=== PATIENT | female | born 1970 | race Caucasian/White ===

== ENCOUNTER → 2017-06-14 | Outpatient (CLI) | payer OTHER ==
[~2017-06-14] MED LIST: ALBU90OI INH; ANTIDEPRESSENT; ASPI325 PO; ASPI325EC PO; ASPI81CH PO; Ativan0.5 MG PO; BENZ100A PO; Cyclobenzaprine5 MG PO; EPIN.3I IM; EPIPEN0.3 MG/0.3 INJ; FERRETTS PO; FLUT44OIA INH; Flonase 0.05% N16 GM; Flovent Disku250 MCG; Flovent Disku250 MCG INH; GABA100 PO; HYDR1TAB94 PO; IBUP600 PO; IBUP800; IBUP800 PO; KETO10 PO; Lamisil125 ML; MECL12.5; MECL12.5 PO; MONT10T; MONT10T PO; Maxalt Mlt10 MG PO; Maxalt10 MG; Maxalt10 MG PO; Norco 10-325 T1 EACH PO; Norco 5-325 Ta1 EACH PO; ONDA8; PSEU120ER PO; Pentoxifylline400 MG PO; Percocet 5-3251 EACH PO; Prednisone20 MG PO; SERT100; SERT100 PO; SIMV10 PO; Valium5 MG PO; Zofran Odt4 MG SL
== END ==
LOC: LAB 12:18
PROVIDERS: Family Medicine
DX: E61.1 Iron deficiency (principal)
CPT/HCPCS: 83540; 83550

== ENCOUNTER 2017-07-15 18:45 | Emergency (ER) | payer OTHER ==
[~2017-07-15] VITALS: Ht 193 cm; Wt 113.4 kg
[~2017-07-15 18:45] MED LIST changes: -ASPI325EC PO; -EPIPEN0.3 MG/0.3 INJ; -Flovent Disku250 MCG INH; -IBUP800; -Lamisil125 ML; -Maxalt Mlt10 MG PO; -Maxalt10 MG
[2017-07-15 19:54] LABS: BASOPHILS ABSOLUTE AUTO 0.03 K/mm3 (0.00-0.23); BASOPHILS PERCENT AUTO 1 % (0-2); EOSINOPHILS ABSOLUTE AUTO 0.13 K/mm3 (0.00-0.68); EOSINOPHILS PERCENT AUTO 2 % (0-6); Hematocrit 33.2 % (33.0-51.0); Hemoglobin 10.2 g/dL (11.5-16.0); IMMATURE GRAN ABSOLUTE AUTO 0.01 K/mm3 (0.00-0.10); IMMATURE GRAN PERCENT AUTO 0 % (0-1); LYMPHOCYTES ABSOLUTE AUTO 1.93 K/mm3 (0.84-5.20); LYMPHOCYTES PERCENT AUTO 36 % (21-46); MONOCYTES ABSOLUTE AUTO 0.41 K/mm3 (0.16-1.47); MONOCYTES PERCENT AUTO 8 % (4-13); Mean Corpuscular HGB 25.7 pg (26.0-34.0); Mean Corpuscular HGB Conc 30.7 g/dL (31.5-36.5); Mean Corpuscular Volume 84 fL (80-100); Mean Platelet Volume 10.5 fL (9.1-12.4); NEUTROPHILS ABSOLUTE AUTO 2.93 K/mm3 (1.96-9.15); NEUTROPHILS PERCENT AUTO 54 % (41-73); Platelet Count 277 K/mm3 (150-400); RDW Coefficient Variation 15.1 % (11.7-14.2); RDW Standard Deviation 45.5 fL (35.1-46.3); Red Blood Cell Count 3.97 M/mm3 (3.80-5.20); White Blood Cell Count 5.44 K/mm3 (4.00-11.30)
[2017-07-15] MEDS ORDERED: Maxalt10 MG (20:19)
[2017-07-15 20:22] LABS: Alanine Aminotransfer (ALT/SGP 17 U/L (12-78); Albumin, Blood 3.7 g/dL (3.4-5.0); Albumin/Globulin Ratio 0.9 (0.8-1.8); Alk Phos 85 U/L (50-136); Anion Gap 8 mmol/L (6-16); Aspartate Aminotrans (AST/SGOT 13 U/L (12-37); Bilirubin, Total 0.6 mg/dL (0.1-1.0); Blood Urea Nitrogen 10 mg/dL (8-24); Bun/Creatinine Ratio 16.5 (12.0-20.0); CO2, Blood 24 mmol/L (21-32); Calcium, Blood 8.6 mg/dL (8.5-10.1); Chloride, Blood 106 mmol/L (98-108); Creatinine, Blood 0.61 mg/dL (0.40-1.00); Glomerular Filtration Rate >60 (60-); Glucose, Blood 87 mg/dL (70-99); Potassium, Blood 3.5 mmol/L (3.5-5.5); Sodium, Blood 138 mmol/L (136-145); Total Protein, Blood 7.7 g/dL (6.4-8.2)
[2017-07-15] MEDS ORDERED: Norco 5-325 Ta1 EACH PO (21:19)
[2017-12-16] MEDS ORDERED: Maxalt Mlt10 MG PO (21:51)
[2018-01-01] MEDS ORDERED: EPIPEN0.3 MG/0.3 INJ (07:27)
[2018-01-01] MEDS ORDERED: Flovent Disku250 MCG INH (07:28)
[2018-03-22] MEDS ORDERED: IBUP800 (10:11)
[2018-03-22] MEDS ORDERED: Lamisil125 ML (10:13)
== END 2017-07-15 21:35 | disposition home or self-care (01) ==
LOC: ER 18:45
PROVIDERS: Emergency Medicine
DX: I80.01 Phlebitis and thrombophlebitis of superficial vessels of right lower extremity (principal); R60.0 Localized edema; I83.019 Varicose veins of right lower extremity with ulcer of unspecified site; G43.909 Migraine, unspecified, not intractable, without status migrainosus; F32.9 Major depressive disorder, single episode, unspecified
CPT/HCPCS: 73610; 80053; 85025; 93971; 96374; 96375; 99284; J1170; J2405

== ENCOUNTER 2017-09-03 07:14 | Day surgery (SDC) | payer OTHER ==
[~2017-09-03 07:14] MED LIST changes: +Maxalt10 MG
[2017-09-03 07:47] LABS: International Normalized Ratio 1.02; Prothrombin Time Results 10.6 Sec (9.7-11.5)
[2017-09-03] MEDS ORDERED: ALBU90OI INH (07:52)
[2017-09-03] MEDS ORDERED: Flovent Disku250 MCG INH (07:54)
[2017-09-03] MEDS ORDERED: GABA100 PO (07:56)
[2017-09-03] MEDS ORDERED: ASPI325EC PO (07:58)
[2017-12-16] MEDS ORDERED: Maxalt Mlt10 MG PO (21:51)
[2018-01-01] MEDS ORDERED: EPIPEN0.3 MG/0.3 INJ (07:27)
[2018-01-01] MEDS ORDERED: Flovent Disku250 MCG INH (07:28)
[2018-03-22] MEDS ORDERED: IBUP800 (10:11)
[2018-03-22] MEDS ORDERED: Lamisil125 ML (10:13)
== END 2017-09-03 23:09 | disposition home or self-care (01) ==
LOC: MHTC 07:14
PROVIDERS: Internal Medicine Interventional Cardiology
PROC: 3E033TZ Introduction of Destructive Agent into Peripheral Vein, Percutaneous Approach (ICD-10-PCS; principal; 2017-09-03)
DX: I83.212 Varicose veins of right lower extremity with both ulcer of calf and inflammation (principal); L97.219 Non-pressure chronic ulcer of right calf with unspecified severity; I10 Essential (primary) hypertension; J45.909 Unspecified asthma, uncomplicated; Z79.899 Other long term (current) drug therapy; Z91.040 Latex allergy status; Z79.82 Long term (current) use of aspirin
CPT/HCPCS: 36415; 36465; 36471; 85610; 99152; C1769; C1888; C1894; J2250; J3010; J7030; J7040

== ENCOUNTER → 2017-12-18 | Outpatient (CLI) | payer OTHER ==
[~2017-12-18] MED LIST changes: +ASPI325EC PO; +Flovent Disku250 MCG INH; +Maxalt Mlt10 MG PO
== END ==
LOC: LAB SHORT 14:02 → LAB 14:02
PROVIDERS: Registered Nurse Community Health
DX: Z12.4 Encounter for screening for malignant neoplasm of cervix (principal)
CPT/HCPCS: 87624; G0123

== ENCOUNTER 2018-01-01 08:00 | Day surgery (SDC) | payer OTHER ==
[~2018-01-01] VITALS: Ht 190.5 cm; Wt 115.0 kg
[2018-01-01 07:27] LABS: BASOPHILS ABSOLUTE AUTO 0.05 K/mm3 (0.00-0.23); BASOPHILS PERCENT AUTO 1 % (0-2); EOSINOPHILS ABSOLUTE AUTO 0.11 K/mm3 (0.00-0.68); EOSINOPHILS PERCENT AUTO 2 % (0-6); Hematocrit 37.1 % (33.0-51.0); Hemoglobin 11.3 g/dL (11.5-16.0); IMMATURE GRAN ABSOLUTE AUTO 0.01 K/mm3 (0.00-0.10); IMMATURE GRAN PERCENT AUTO 0 % (0-1); LYMPHOCYTES ABSOLUTE AUTO 2.08 K/mm3 (0.84-5.20); LYMPHOCYTES PERCENT AUTO 39 % (21-46); MONOCYTES ABSOLUTE AUTO 0.43 K/mm3 (0.16-1.47); MONOCYTES PERCENT AUTO 8 % (4-13); Mean Corpuscular HGB 24.8 pg (26.0-34.0); Mean Corpuscular HGB Conc 30.5 g/dL (31.5-36.5); Mean Corpuscular Volume 82 fL (80-100); Mean Platelet Volume 10.2 fL (9.1-12.4); NEUTROPHILS ABSOLUTE AUTO 2.69 K/mm3 (1.96-9.15); NEUTROPHILS PERCENT AUTO 50 % (41-73); Platelet Count 319 K/mm3 (150-400); RDW Coefficient Variation 14.9 % (11.7-14.2); RDW Standard Deviation 44.6 fL (35.1-46.3); Red Blood Cell Count 4.55 M/mm3 (3.80-5.20); White Blood Cell Count 5.37 K/mm3 (4.00-11.30)
[2018-01-01 07:41] LABS: International Normalized Ratio 1.04; Prothrombin Time Results 10.7 Sec (9.7-11.5)
[~2018-01-01 08:00] MED LIST changes: +EPIPEN0.3 MG/0.3 INJ
[2018-01-01 08:05] LABS: Alanine Aminotransfer (ALT/SGP 17 U/L (12-78); Albumin, Blood 3.6 g/dL (3.4-5.0); Albumin/Globulin Ratio 0.9 (0.8-1.8); Alk Phos 81 U/L (50-136); Aspartate Aminotrans (AST/SGOT 12 U/L (12-37); Bilirubin, Direct <0.1 mg/dL (0.0-0.3); Bilirubin, Indirect Unable to Calculate mg/dL (0.1-0.7); Bilirubin, Total 0.6 mg/dL (0.1-1.0); Blood Urea Nitrogen 14 mg/dL (8-24); Creatinine, Blood 0.74 mg/dL (0.40-1.00); Globulin, Blood 4.2 g/dL (2.2-4.0); Glomerular Filtration Rate >60 (60-); Total Protein, Blood 7.8 g/dL (6.4-8.2)
== END 2018-01-02 22:35 | disposition home or self-care (01) ==
LOC: MHTC 08:00
PROVIDERS: Internal Medicine Interventional Cardiology; Pathology Dermatopathology
PROC: 065P3ZZ Destruction of Right Saphenous Vein, Percutaneous Approach (ICD-10-PCS; principal; 2018-01-01)
DX: I83.013 Varicose veins of right lower extremity with ulcer of ankle (principal); L97.319 Non-pressure chronic ulcer of right ankle with unspecified severity; I10 Essential (primary) hypertension; I87.2 Venous insufficiency (chronic) (peripheral); J45.909 Unspecified asthma, uncomplicated
CPT/HCPCS: 36415; 36466; 36475; 80076; 82565; 84520; 85025; 85610; 99152; 99153; C1769; C1888; C1894; J1644; J2250; J3010; J7030; J7040

== ENCOUNTER 2018-01-03 00:21 | Day surgery (SDC) | payer OTHER | END 2018-01-03 22:41 | disposition home or self-care (01) | LOC: VAS 00:21 | DX: I87.2 Venous insufficiency (chronic) (peripheral) (principal) | CPT/HCPCS: 93971 ==

== ENCOUNTER → 2018-05-22 | Outpatient (CLI) | payer OTHER ==
[~2018-05-22] MED LIST changes: +IBUP800; +Lamisil125 ML
[2018-05-22 19:17] LABS: BASOPHILS ABSOLUTE AUTO 0.05 K/mm3 (0.00-0.23); BASOPHILS PERCENT AUTO 1 % (0-2); EOSINOPHILS ABSOLUTE AUTO 0.09 K/mm3 (0.00-0.68); EOSINOPHILS PERCENT AUTO 1 % (0-6); Hematocrit 36.6 % (33.0-51.0); Hemoglobin 10.8 g/dL (11.5-16.0); IMMATURE GRAN ABSOLUTE AUTO 0.02 K/mm3 (0.00-0.10); IMMATURE GRAN PERCENT AUTO 0 % (0-1); LYMPHOCYTES ABSOLUTE AUTO 1.67 K/mm3 (0.84-5.20); LYMPHOCYTES PERCENT AUTO 24 % (21-46); MONOCYTES ABSOLUTE AUTO 0.54 K/mm3 (0.16-1.47); MONOCYTES PERCENT AUTO 8 % (4-13); Mean Corpuscular HGB Conc 29.5 g/dL (31.5-36.5); Mean Corpuscular Volume 85 fL (80-100); Mean Platelet Volume 10.4 fL (9.1-12.4); NEUTROPHILS ABSOLUTE AUTO 4.52 K/mm3 (1.96-9.15); NEUTROPHILS PERCENT AUTO 66 % (41-73); Platelet Count 283 K/mm3 (150-400); RDW Coefficient Variation 16.8 % (11.7-14.2); RDW Standard Deviation 52.4 fL (35.1-46.3); Red Blood Cell Count 4.32 M/mm3 (3.80-5.20); White Blood Cell Count 6.89 K/mm3 (4.00-11.30)
== END ==
LOC: LAB 16:35 → LAB SHORT 16:35
PROVIDERS: Family Medicine
DX: Z09 Encounter for follow-up examination after completed treatment for conditions other than malignant neoplasm (principal); Z87.42 Personal history of other diseases of the female genital tract
CPT/HCPCS: 85025

== ENCOUNTER 2019-02-22 02:27 | Emergency (ER) | payer OTHER ==
[~2019-02-22] VITALS: Ht 193 cm; Wt 117.9 kg
[2019-02-22 03:11] LABS: BASOPHILS ABSOLUTE AUTO 0.04 K/mm3 (0.00-0.23); BASOPHILS PERCENT AUTO 1 % (0-2); EOSINOPHILS ABSOLUTE AUTO 0.12 K/mm3 (0.00-0.68); EOSINOPHILS PERCENT AUTO 2 % (0-6); Hematocrit 30.4 % (33.0-51.0); Hemoglobin 8.5 g/dL (11.5-16.0); IMMATURE GRAN ABSOLUTE AUTO 0.01 K/mm3 (0.00-0.10); IMMATURE GRAN PERCENT AUTO 0 % (0-1); LYMPHOCYTES ABSOLUTE AUTO 1.96 K/mm3 (0.84-5.20); LYMPHOCYTES PERCENT AUTO 35 % (21-46); MONOCYTES ABSOLUTE AUTO 0.36 K/mm3 (0.16-1.47); MONOCYTES PERCENT AUTO 6 % (4-13); Mean Corpuscular Volume 75 fL (80-100); NEUTROPHILS ABSOLUTE AUTO 3.18 K/mm3 (1.96-9.15); NEUTROPHILS PERCENT AUTO 56 % (41-73); Platelet Count 320 K/mm3 (150-400); RDW Standard Deviation 45.9 fL (35.1-46.3); Red Blood Cell Count 4.05 M/mm3 (3.80-5.20); White Blood Cell Count 5.67 K/mm3 (4.00-11.30)
[2019-02-22 03:26] LABS: Alanine Aminotransfer (ALT/SGP 21 U/L (12-78); Albumin, Blood 3.7 g/dL (3.4-5.0); Albumin/Globulin Ratio 0.9 (0.8-1.8); Alk Phos 88 U/L (50-136); Anion Gap 7 mmol/L (6-16); Aspartate Aminotrans (AST/SGOT 15 U/L (12-37); Bilirubin, Total 0.2 mg/dL (0.1-1.0); Blood Urea Nitrogen 11 mg/dL (8-24); Bun/Creatinine Ratio 15.6 (12.0-20.0); CO2, Blood 25 mmol/L (21-32); Calcium, Blood 8.6 mg/dL (8.5-10.1); Chloride, Blood 107 mmol/L (98-108); Globulin, Blood 3.9 g/dL (2.2-4.0); Glomerular Filtration Rate >60 (60-); Glucose, Blood 102 mg/dL (70-99); Potassium, Blood 3.8 mmol/L (3.5-5.5); Sodium, Blood 139 mmol/L (136-145); Total Protein, Blood 7.6 g/dL (6.4-8.2); Troponin I <0.015 ng/mL (0.000-0.040)
== END 2019-02-22 06:05 | disposition home or self-care (01) ==
LOC: ER 02:27
PROVIDERS: Emergency Medicine
DX: R07.89 Other chest pain (principal); D64.9 Anemia, unspecified; F32.9 Major depressive disorder, single episode, unspecified; G43.909 Migraine, unspecified, not intractable, without status migrainosus; I87.8 Other specified disorders of veins; Z87.891 Personal history of nicotine dependence; Z91.030 Bee allergy status; Z91.040 Latex allergy status; Z91.048 Other nonmedicinal substance allergy status; Z79.899 Other long term (current) drug therapy
CPT/HCPCS: 71046; 80053; 84484; 85025; 93005; 93010; 99285-25

== ENCOUNTER 2019-06-09 12:59 | Day surgery (SDC) | payer OTHER ==
[~2019-06-09] VITALS: Ht 193 cm; Wt 116.6 kg
--- NOTE | 2019-06-09 16:11 | NUR ---
06/09/19 [id number] Yandy Jackson SIMETHICONE USED DURING PROCEDURE.
== END 2019-06-09 16:54 | disposition home or self-care (01) ==
LOC: ORSCSDS 12:59
PROVIDERS: Student in an Organized Health Care Education/Training Program
PROC: 0DB98ZX Excision of Duodenum, Via Natural or Artificial Opening Endoscopic, Diagnostic (ICD-10-PCS; principal; 2019-06-09 14:30)
PROC: 0DBH8ZX Excision of Cecum, Via Natural or Artificial Opening Endoscopic, Diagnostic (ICD-10-PCS; principal; 2019-06-09 14:30)
PROC: 0DBK8ZX Excision of Ascending Colon, Via Natural or Artificial Opening Endoscopic, Diagnostic (ICD-10-PCS; principal; 2019-06-09 14:30)
PROC: 0DB68ZX Excision of Stomach, Via Natural or Artificial Opening Endoscopic, Diagnostic (ICD-10-PCS; principal; 2019-06-09 14:30)
DX: D50.9 Iron deficiency anemia, unspecified (principal); K21.9 Gastro-esophageal reflux disease without esophagitis; D12.0 Benign neoplasm of cecum; D17.79 Benign lipomatous neoplasm of other sites; K44.9 Diaphragmatic hernia without obstruction or gangrene; K57.30 Diverticulosis of large intestine without perforation or abscess without bleeding; I10 Essential (primary) hypertension; J45.909 Unspecified asthma, uncomplicated; Z79.899 Other long term (current) drug therapy
CPT/HCPCS: 88305; J2250; J2704; J7120

== ENCOUNTER 2019-07-27 15:52 | Inpatient (IN) | payer OTHER ==
[~2019-07-27] VITALS: Ht 193 cm; Wt 117.8 kg
[~2019-07-27 15:52] MED LIST changes: -Maxalt Mlt10 MG PO
[2019-07-27 18:59] LABS: Platelet Count 201 K/mm3 (150-400)
[2019-07-27 20:03] LABS: BASOPHILS ABSOLUTE AUTO 0.06 K/mm3 (0.00-0.23); BASOPHILS PERCENT AUTO 1 % (0-2); EOSINOPHILS ABSOLUTE AUTO 0.32 K/mm3 (0.00-0.68); EOSINOPHILS PERCENT AUTO 5 % (0-6); Hematocrit 37.8 % (33.0-51.0); Hemoglobin 12.4 g/dL (11.5-16.0); IMMATURE GRAN ABSOLUTE AUTO 0.01 K/mm3 (0.00-0.10); IMMATURE GRAN PERCENT AUTO 0 % (0-1); LYMPHOCYTES ABSOLUTE AUTO 1.64 K/mm3 (0.84-5.20); LYMPHOCYTES PERCENT AUTO 25 % (21-46); MONOCYTES ABSOLUTE AUTO 0.56 K/mm3 (0.16-1.47); MONOCYTES PERCENT AUTO 8 % (4-13); Mean Corpuscular HGB 30.3 pg (26.0-34.0); Mean Corpuscular HGB Conc 32.8 g/dL (31.5-36.5); Mean Corpuscular Volume 92 fL (80-100); Mean Platelet Volume 10.6 fL (9.1-12.4); NEUTROPHILS ABSOLUTE AUTO 4.04 K/mm3 (1.96-9.15); NEUTROPHILS PERCENT AUTO 61 % (41-73); Platelet Count 197 K/mm3 (150-400); RDW Coefficient Variation 13.2 % (11.7-14.2); RDW Standard Deviation 45.2 fL (35.1-46.3); Red Blood Cell Count 4.09 M/mm3 (3.80-5.20); White Blood Cell Count 6.63 K/mm3 (4.00-11.30)
[2019-07-27 20:13] LABS: Alanine Aminotransfer (ALT/SGP 21 U/L (12-78); Albumin, Blood 3.6 g/dL (3.4-5.0); Albumin/Globulin Ratio 0.9 (0.8-1.8); Alk Phos 94 U/L (50-136); Anion Gap 5 mmol/L (6-16); Aspartate Aminotrans (AST/SGOT 28 U/L (12-37); Bilirubin, Total 0.4 mg/dL (0.1-1.0); Blood Urea Nitrogen 13 mg/dL (8-24); Bun/Creatinine Ratio 18.6 (12.0-20.0); CO2, Blood 28 mmol/L (21-32); Calcium, Blood 8.8 mg/dL (8.5-10.1); Chloride, Blood 106 mmol/L (98-108); Glomerular Filtration Rate >60 (60-); Glucose, Blood 84 mg/dL (70-99); Potassium, Blood 3.8 mmol/L (3.5-5.5); Sodium, Blood 139 mmol/L (136-145); Total Protein, Blood 7.6 g/dL (6.4-8.2)
[2019-07-27] MEDS ORDERED: HYDROCODON-ACE1 EAC3 PO (21:10)
[2019-07-27 21:52] LABS: International Normalized Ratio 1.07; Prothrombin Time Results 11.4 Sec (9.7-11.5)
--- NOTE | 2019-07-27 22:19 | NUR ---
PT. RESTING COMFORTABLY IN BED, WATCHING TV. NO APPARENT DISTRESS NOTED. DENIES ANY NEEDS AT THIS TIME. CALL LIGHT WITHIN REACH AND SIDE RAILS UPX2. WILL CONT TO MONITOR.
--- NOTE | 2019-07-28 13:14 | NUR ---
ASSUMED CARE 48 YO FEMALE ADMITTED TO ICU 15 WITH DVT LEFT LEG AFTER REPORT FROM DENVER DIXON. C/O 12/18 PAIN IN LEFT LEG AND GIVEN DILAUDID 1 MG IV FOR RELIEF TO PAIN OF 06/20. HEPARIN GTT AT 19 UNITS/KG/HOUR WITH DOSING WEIGHT OF 100 KG AND BOLUS OF 5000 UNITS GIVEN FOR SUBTHERAPEUTIC APTT. MESSAGE LEFT WITH DR. MELENDEZ OFFICE TO ADVISE PATIENT HAS BEEN ADMITTED TO A ROOM. PATIENT IS MEDICAL STATUS AT THIS TIME
--- NOTE | 2019-07-28 19:13 | NUR ---
BEDSIDE REPORT WITH DENVER OROPEZA
--- NOTE | 2019-07-28 19:59 | NUR ---
ASSESSMENT/ASSUMED CARE PT SITTING UP IN BED WITH LEFT LEG ELEVATED ON PILLOW. FAMILY AT BEDSIDE. PT REPORTS PAIN 2/10 AFTER DILAUDID GIVEN FOR LEFT LEG PAIN BY DAY SHIFT RN. LUNGS CLEAR ON ROOMAIR. RESP EVEN AND NONLABORED. NONPRODUCTIVE COUGH NOTED. HEART RATE REGULAR. BP STABLE. EDEMA NOTED TO LEFT LEG. PEDAL PULSE TO LEFT LEG VIA DOPPLER. BT+ ABD SOFT AND NONTENDER. PT EATING SANDWICH AND PUDDING. DENIES N/V. IV 20G TO RIGHT AC WITH HEPARIN AT 19 UNITS/KG/HR. SITE CLEAR.
--- NOTE | 2019-07-28 22:00 | NUR ---
PAIN PT SLEEPING, AWAKENS EASILY FOR LABS. C/O LEFT LEG PAIN 10/10, MED WITH DILAUDID 1 MG FOR PAIN.
--- NOTE | 2019-07-28 22:58 | NUR ---
HEPARIN PTT 52.8, HEPARING INCREASED TO 20 UNITS/KG/HR 40 ML/HR PER PHARMACY ORDER. PT RESTING QUIETLY. VSS.
--- NOTE | 2019-07-28 23:51 | NUR ---
PAIN PT REPORTS PAIN TO LEFT LEG 9/10, FROM GROIN DOWN. MED WITH DILAUDID 1 MG.
--- NOTE | 2019-07-29 01:02 | NUR ---
ASSUMED CARE OF PATIENT PATIENT RESTING IN BED WITH NO COMPLAINTS AT THIS TIME. LEFT LEG CONTINUES TO BE LARGER THAN RIGHT WITH FAINT PULSES, AND NUMBNESS AND TINGLING TO LEFT FOOT
--- NOTE | 2019-07-29 05:48 | NUR ---
PATIENT SLEEPING OFF AND ON, AWAKENS EASILY TO SLIGHT STIMULI. PATIENT VERBALIZED THAT IT FEELS IF HER LEFT THIGH IS TIGHTER AND MORE PAINFUL. PULSES CONTINUE TO BE FAINT BUT PALPABLE. HEPARIN DRIP CONTINUES. MEDICATED WITH DILAUDID FOR PAIN. PATIENT UP IN ROOM AT TIMES TO USE TOILET. PATIENTS AT BEDSIDE PROVIDING GOOD SUPPORT.
[2019-07-29 05:57] LABS: BASOPHILS ABSOLUTE AUTO 0.04 K/mm3 (0.00-0.23); BASOPHILS PERCENT AUTO 1 % (0-2); EOSINOPHILS ABSOLUTE AUTO 0.27 K/mm3 (0.00-0.68); EOSINOPHILS PERCENT AUTO 5 % (0-6); Hematocrit 32.6 % (33.0-51.0); Hemoglobin 10.2 g/dL (11.5-16.0); IMMATURE GRAN ABSOLUTE AUTO 0.02 K/mm3 (0.00-0.10); IMMATURE GRAN PERCENT AUTO 0 % (0-1); LYMPHOCYTES ABSOLUTE AUTO 1.57 K/mm3 (0.84-5.20); LYMPHOCYTES PERCENT AUTO 28 % (21-46); MONOCYTES ABSOLUTE AUTO 0.46 K/mm3 (0.16-1.47); MONOCYTES PERCENT AUTO 8 % (4-13); Mean Corpuscular HGB 29.3 pg (26.0-34.0); Mean Corpuscular HGB Conc 31.3 g/dL (31.5-36.5); Mean Corpuscular Volume 94 fL (80-100); Mean Platelet Volume 10.4 fL (9.1-12.4); NEUTROPHILS ABSOLUTE AUTO 3.21 K/mm3 (1.96-9.15); NEUTROPHILS PERCENT AUTO 58 % (41-73); Platelet Count 166 K/mm3 (150-400); RDW Coefficient Variation 13.2 % (11.7-14.2); RDW Standard Deviation 45.2 fL (35.1-46.3); Red Blood Cell Count 3.48 M/mm3 (3.80-5.20); White Blood Cell Count 5.57 K/mm3 (4.00-11.30)
[2019-07-29 06:19] LABS: Anion Gap 3 mmol/L (6-16); Blood Urea Nitrogen 12 mg/dL (8-24); Bun/Creatinine Ratio 18.8 (12.0-20.0); CO2, Blood 30 mmol/L (21-32); Calcium, Blood 8.5 mg/dL (8.5-10.1); Chloride, Blood 105 mmol/L (98-108); Creatinine, Blood 0.64 mg/dL (0.40-1.00); Glomerular Filtration Rate >60 (60-); Glucose, Blood 91 mg/dL (70-99); Potassium, Blood 4.1 mmol/L (3.5-5.5); Sodium, Blood 138 mmol/L (136-145)
--- NOTE | 2019-07-29 07:53 | NUR ---
ASSUMED CARE REPORT FROM VALDEZ Loo RN. PATIENT AWAKE, PAIN IN LEFT LEG 10/10. VS STABLE. MEDICATED WITH DILAUDID 1 MG IV TO BRING PAIN TO 5/10. LEG ELEVATED WITH 3 PILLOWS. HEPARIN GTT CONTINUES. PATIENT WILL BE NPO AFTER BREAKFAST FOR PROCEDURE WITH DR. KRISHNA AFTER NOON
--- NOTE | 2019-07-29 08:30 | NUR ---
MD VISIT DR. KRISHNA IN. DILAUDID IV INCREASED TO 2 MG. CONSENT GIVEN. NPO AFTER BREAKFAST
--- NOTE | 2019-07-29 11:25 | NUR ---
PATIENT FELT NAUSEATED AND SAID SHE HAD A HEADACHE. ZOFRAN GIVEN
--- NOTE | 2019-07-29 14:26 | NUR ---
HEAPRIN GTT INCREASED PER PHARMACY. VERIFIED BY DENVER BRAVO
--- NOTE | 2019-07-29 16:04 | NUR ---
REPORT GIVEN TO DENVER HARVEY. PATIENT IS STILL WAITING FOR DR. KRISHNA TO TAKE HER TO [facility] AND SHE REMAINS NPO. HEPARIN GTT CONTINUES AND WAS VERIFIED.
--- NOTE | 2019-07-29 16:15 | NUR ---
ASSUMED CARE RECIEVED REPORT FROM DENVER MARTIN. PT IS LYING IN BED FLAT IN PAIN (MEDICATED WITH DILAUDID). SHE IS NEXT IN LINE FOR THE LINING BASTER. SHE HAS HEPARIN INFUSING AT 22 UNITS/KG/HOUR, AT 44 ML/HR WITH A DOSING WEIGHT OF 100KG. THIS WAS VERIFIED BY MYSELF AND VERONICA WITH THE EMAR. BED IS LOW AND LOCKED. PT DENIES SOB/COUGH.
--- NOTE | 2019-07-29 16:50 | NUR ---
PT LEFT TO STRATEGIC DEBRIEFING SPECIALIST FOR THROMBOLECTOMY.
--- NOTE | 2019-07-29 20:00 | NUR ---
ASSUMPTION OF CARE: PT A&O. REPORTS PAIN IN L LEG. VITALS STABLE. HR IN THE 90S. SBP IN THE 120S. ON NONREBREATHER. SPO2 >90%. WILL CHANGE TO NC. LUNG SOUNDS CLEAR THROUGHOUT. PT LEFT LEG SWOLLEN. WARM TO THE TOUCH WITH CAP REFILL <3 SEC. REPORTS SOME NUMBNESS WITH TOUCH HOWEVER PT IS ABLE TO WIGGLE TOES. PEDAL AND TIBIAL PULSES NOT PALPABLE BUT CAN BE FOUND WITH DOPPLER. SHEATH IN L POP VEIN INFUSING WITH HEPARIN AT 22UNITS. DOSING WEIGHT IS 100KG. SHEATH DRESSING IS C/D/I. SOME DRIED BLOOD ON LEFT KNEE. L LEG MEASUREMENTS: 45 1/2 AT THE CALF AND 65 1/2 AT THIGH. MARKED WITH BLACK PERMANENT MARKER. WILL CONTINUE TO MONITOR PULSES AND SWELLING. TOMI WAS AT BEDSIDE WITH PT. RECEIVED ORDERS FOR FENTANYL 25MCG Q 30MIN PRN AND DIET TOLERATED. PT WILL NEED TO BE NPO AFTER BREAKFAST TOMORROW FOR POSS STENT TOMORROW AFTER LUNCH. BED IN LOW POSITION. PT HAS CALL LIGHT.
--- NOTE | 2019-07-30 03:19 | NUR ---
PT COMPLAINING OF NEED TO VOID. HAS ATTEMPTED ON BEDPAN X 2. NO RESULTS YET. BLADDER SCAN REVEALED >999ML. CALL PLACED TO DR. YOO. ORDERS RECEIVED TO STRAIGHT CATH X1 NOW AND REPEAT BLADDER SCAN IN 6 HOURS.
[2019-07-30 03:54] LABS: Source, Urine Catheter
--- NOTE | 2019-07-30 04:00 | NUR ---
CATH PLACED AND DRAINED 1100MLS OF DARK TOMER URINE. CALL PLACED TO FREDO REGARDING AMOUNT OF URINE RETAINED AND INFORM DR THAT PT HAS A POP SHEATH IN PLACE. ORDERS RECEIVED TO FOR AGUILAR CATH.
[2019-07-30 04:03] LABS: Bilirubin, Urine Neg (Neg); Blood, Urine 5+ (Neg); Glucose Qualitative, Urine Neg (Neg); Ketones, Urine Neg (Neg); Leukocyte Esterase, Urine 1+ (Neg); Nitrite, Urine Neg (Neg); Protein, Urine 3+ (Neg); Specific Gravity, Urine 1.015 (1.003-1.022); Urobilinogen, Urine NORM (Normal)
[2019-07-30 04:06] LABS: Appearance, Urine Hazy (Clear); Color, Urine Amber (P-Yellow)
[2019-07-30 04:14] LABS: Amorphous Heavy (0-Heavy); Bacteria Few /hpf; Mucus Light (0-Heavy); Red Blood Cells, Urine 0-2 /hpf (0-2); Squamous Epithelial Cells Not Seen /hpf (Few); White Blood Cells, Urine 0-2 /hpf (0-5)
[2019-07-30 04:19] LABS: BASOPHILS ABSOLUTE AUTO 0.03 K/mm3 (0.00-0.23); BASOPHILS PERCENT AUTO 1 % (0-2); EOSINOPHILS ABSOLUTE AUTO 0.09 K/mm3 (0.00-0.68); EOSINOPHILS PERCENT AUTO 2 % (0-6); Hematocrit 33.1 % (33.0-51.0); Hemoglobin 10.6 g/dL (11.5-16.0); IMMATURE GRAN ABSOLUTE AUTO 0.01 K/mm3 (0.00-0.10); IMMATURE GRAN PERCENT AUTO 0 % (0-1); LYMPHOCYTES ABSOLUTE AUTO 0.93 K/mm3 (0.84-5.20); LYMPHOCYTES PERCENT AUTO 16 % (21-46); MONOCYTES ABSOLUTE AUTO 0.57 K/mm3 (0.16-1.47); MONOCYTES PERCENT AUTO 10 % (4-13); Mean Corpuscular HGB 29.6 pg (26.0-34.0); Mean Corpuscular Volume 93 fL (80-100); Mean Platelet Volume 9.9 fL (9.1-12.4); NEUTROPHILS ABSOLUTE AUTO 4.22 K/mm3 (1.96-9.15); NEUTROPHILS PERCENT AUTO 72 % (41-73); Platelet Count 164 K/mm3 (150-400); RDW Coefficient Variation 13.1 % (11.7-14.2); RDW Standard Deviation 44.3 fL (35.1-46.3); Red Blood Cell Count 3.58 M/mm3 (3.80-5.20); White Blood Cell Count 5.85 K/mm3 (4.00-11.30)
--- NOTE | 2019-07-30 06:06 | NUR ---
SHIFT SUMMARY: PT A & O. SOME COMPLAINTS OF PAIN THROUGHOUT SHIFT, WELL CONTROLLED WITH PRN FENTANYL. ONLY 1 EPISODE OF VOMITING AT BEGINNING OF SHIFT BUT NO COMPLAINTS SINCE. PT SPO2 DID WELL ON 4L NC. IN SR WITH HR IN THE 90S AND SBP IN THE 120S. PULSES PALPABLE IN R LEG AND HEARD WITH DOPPLER IN L LEG. L LEG REMAINES EDEMAMOUS WITH SLIGHT IMPROVEMENT. CURRENT MEASUREMENTS ARE 65CM AT THIGH AND 45CM AT CALF. POP SHEATH DRESSING REMAINS C/D/I. PT DID WELL KEEPING L LEG STRAIGHT THROUGHOUT THE NIGHT. PT ATTEMPTED TO VOID IN BED PRINCE WITH NO SUCCESS. BLADDER SCAN DONE SHOWING >999ML. CATH PLACED AND DRAINED 1100MLS. AGUILAR CURRENTLY IN PLACE DRAINING YELLOW URINE. PT CAN HAVE DIET TOLERATED HOWEVER NEEDS TO BE NPO AFTER BREAKFAST FOR STENT PLACEMENT THIS AFTERNOON. WILL PASS REPORT TO ONCOMING DENVER
--- NOTE | 2019-07-30 07:45 | NUR ---
SHIFT ASSESSMENT PT IS ALERT AND ORIENTED THIS AM. STATES PAIN TO LEFT LEG IS RIGHT AROUND A 6/10 AND WILL NEED PAIN MEDS SOON. PAIN IS TO LEFT LEG ONLY SHE STATES DENIES PAIN ANYWHERE ELSE IN HER BODY. WILL CON'T TO MONITOR AND ASSESS THE NEED FOR PAIN MEDS/TREATMENT. CHECKED PEDAL PULSE WITH OFF GOING RN. PULSE NOTED TO LEFT FOOT WITH DOPPLER. STRONG PULSE TO RIGHT PEDAL PULSE AND VICTORIA RADIAL PULSES. VSS. HEART RATE STABLE. PT IS ON 2L N/C WITH NO LABORED BREATHING. OXYGEN SATS HOLDING IN THE 90'S. PT DENIES ANY PAIN TO ABD. STATES SHE IS SLIGHTLY HUNGRY THIS AM. WILL GET HER BREAKFAST. OFF GOING NURSE REPORT SHE IS ALLOWED TO HAVE BREAKFAST BUT THEN NPO STATUS. ABD IS SOFT AND NON TENDER TO PALPITATION. PT HAS AGUILAR CATH IN PLACE THIS AM WITH NO S/S OF INFECTION. DRAINING YELLOW URINE. LEFT LEG IS SWOLLEN. OFF GOING RN STATES SWELLING HAS LESSENED GREATLY FROM YESTERDAY. PT WAS ENCOURAGED TO CON'T TO HOLD THAT LEG STILL. RIGHT LEG SHE CON'T TO MOVE WITH NO PROBLEMS. PT HAS TWO IV'S ONE TO HER LEFT CALF WITH A HEPARIN GTT RUNNING ORDERED. PT HAS A SL IV TO THE LEFT AC. PATENT WITH FLUSHING. CALL LIGHT WITHIN REACH. WILL CON'T TO MONITOR PT T/O SHIFT.
--- NOTE | 2019-07-30 11:37 | NUR ---
ASSESSMENT PT CON'T TO BE STABLE WITH NO CHANGES FROM BASELINE. FAMILY HAS BEEN IN AND OUT OF ROOM. PT HAS REQUESTED AND RECIEVED PAIN MEDS OFF AND ON T/O SHIFT. VITALS CON'T TO BE STABLE. THERE IS NO CHANGE TO LEFT LEG CONDITION. HEP CON'T TO RUN ORDERED. WILL CON'T TO MONITOR PT AND REPORT ANY CHANGES.
--- NOTE | 2019-07-30 12:26 | NUR ---
DR TYSON MEHTA IN TO SEE PT. WILL IMPLEMENT ANY CHANGES/NEW ORDERS.
--- NOTE | 2019-07-30 18:00 | NUR ---
SHIFT SUMMARY PT ARRIVED BACK TO UNIT FROM LOGGING ENGINEER. BEDSIDE REPORT WAS RECIEVED FROM LOGGING ENGINEER RN. PT IS ALERT AND ORIENTED AND IN GOOD SPIRITS. SHE IS HUNGRY AND DINNER WILL BE GIVEN TO HER. DAUGHTER IS IN ROOM AT THIS TIME. HEP GTT WILL BE CONTINUED ORERED FROM PHARMACY SOON PTT RESULTS ARE RECIEVED. PTT BEING DRAWN AT THIS TIME. PT IS MADE MEDICAL FLOOR STATUS AT THIS TIME. VITALS ARE STABLE. LEFT LEG IS WARM WITH PEDAL PULSE PRESENT TO PALPITATION. WILL CON'T TO MONITOR PT TILL REPORT TO ONCOMING RN.
--- NOTE | 2019-07-30 20:00 | NUR ---
ASSUMPTION OF CARE: A&O. AWAKE IN BED. PT BACK FROM TRIMMING OPERATOR WITH STENT TO L POP. L FOOT WARM AND PINK. BILAT PEDAL PULSES PALPABLE. VITALS STABLE. HR IN THE 70S, SBP IN THE 100-110S SPO2 >90% ON 1L NC. LUNG SOUNDS CLEAR. HEPARIN ON STANDBY AWAITING APTT AND ORDERS FROM PHARMACY. PT IS TO KEEP LEFT LEG STRAIGHT. CAN WALK IN THE AM. PT UNDERSTANDS.
[2019-07-31 04:27] LABS: BASOPHILS ABSOLUTE AUTO 0.04 K/mm3 (0.00-0.23); BASOPHILS PERCENT AUTO 1 % (0-2); EOSINOPHILS ABSOLUTE AUTO 0.31 K/mm3 (0.00-0.68); EOSINOPHILS PERCENT AUTO 6 % (0-6); Hematocrit 30.2 % (33.0-51.0); Hemoglobin 9.5 g/dL (11.5-16.0); IMMATURE GRAN ABSOLUTE AUTO 0.01 K/mm3 (0.00-0.10); IMMATURE GRAN PERCENT AUTO 0 % (0-1); LYMPHOCYTES ABSOLUTE AUTO 1.36 K/mm3 (0.84-5.20); LYMPHOCYTES PERCENT AUTO 28 % (21-46); MONOCYTES ABSOLUTE AUTO 0.39 K/mm3 (0.16-1.47); MONOCYTES PERCENT AUTO 8 % (4-13); Mean Corpuscular HGB 29.2 pg (26.0-34.0); Mean Corpuscular HGB Conc 31.5 g/dL (31.5-36.5); Mean Corpuscular Volume 93 fL (80-100); Mean Platelet Volume 9.7 fL (9.1-12.4); NEUTROPHILS PERCENT AUTO 57 % (41-73); Platelet Count 144 K/mm3 (150-400); RDW Coefficient Variation 13.2 % (11.7-14.2); RDW Standard Deviation 44.7 fL (35.1-46.3); Red Blood Cell Count 3.25 M/mm3 (3.80-5.20); White Blood Cell Count 4.91 K/mm3 (4.00-11.30)
[2019-07-31 04:42] LABS: Anion Gap 4 mmol/L (6-16); Blood Urea Nitrogen 7 mg/dL (8-24); Bun/Creatinine Ratio 11.6 (12.0-20.0); CO2, Blood 30 mmol/L (21-32); Calcium, Blood 8.1 mg/dL (8.5-10.1); Chloride, Blood 107 mmol/L (98-108); Glomerular Filtration Rate >60 (60-); Glucose, Blood 94 mg/dL (70-99); Potassium, Blood 3.8 mmol/L (3.5-5.5); Sodium, Blood 141 mmol/L (136-145)
--- NOTE | 2019-07-31 06:20 | NUR ---
SHIFT SUMMARY: NO ACUTE CHANGES THIS SHIFT. MAIN COMPLAINT HAS BEEN PAIN TO L LEG. MEDS GIVEN PER AUG. VITALS STABLE. BILAT PEDAL PULSES PALPABLE. L LEG IS PINK AND WARM. STENT PLACED TO L POP. R ARM IV TO HAND AND AC. HEPARIN INFUSING THROUGH R HAND IV AT 25U. DOSING WEIGHT IS 100KG. WILL PASS REPORT TO NEXT SHIFT
--- NOTE | 2019-07-31 07:30 | NUR ---
Received report from Hammad GOFF. Patient supine in bed with HOB at 30n degrees. She is on 2L O2 and sats upper 90%'s. She is alert and oriented and able to communicate her needs. Left leg pedal pulse by doppler, calf measure ment stayes the same at 45cm and thigh reduced to 62.5 cm. Puncture site at popiteal clear op dressing intact and no signs of bleeding.She has muniz cath draining to gravity light ingrid colored urine. VSS See EMR. She has 20ga TONE IV dressing intact and site WNL's and is infusing heparin at 25units/kg/hr.
--- NOTE | 2019-07-31 09:00 | NUR ---
Patient medicated with Dilaudid 2mg for 10/10 left leg pain. O@ was removed and sats in the mid to upper 90%'s. No changes in left pedal pulse and right pedal 1+. Patient comfortable 5/10 pain. VSS see EMR
--- NOTE | 2019-07-31 11:30 | NUR ---
Patient continues on heparin. She is up out of bed and walked to shower very slow and she stated pain with ambulation but a little better than before. VSS. She remains on RA.
--- NOTE | 2019-07-31 13:30 | NUR ---
Report given to Jennifer GOFF and patient and all her belonging taken to room 303 and transfered via wheelchair. Talked with RN and MANAGER COMBINATION while patient being transfered. Heparin infuing at transfer,
--- NOTE | 2019-07-31 17:05 | NUR ---
SHE IS VISITING WITH HER DAUGHTER. HEPARIN DRIP CONTINUES AT 50 MLS/HR. RAC FRANCY DC'D. LEFT POPLITEAL DRESSING D&I. RIGHT ANKLE CHRONIC WOUND DRY. SHE PUT CREAM ON IT. HER LEFT SCAPULAR AREA IS PINK AND ITCHY. I PUT CREAM ON THAT AREA. TELE NSR. AGUILAR PATENT WITH TOMER URINE. DILAUDID GIVEN X1 SINCE ARRIVAL TO RM 303 FROM ICU AT 1405. I CAN PALPATE THE LEFT DORSALIS PEDAL PULSE. SHE IS ON RA WITH NO RESP. DISTRESS.
--- NOTE | 2019-08-01 05:32 | NUR ---
SHIFT SUMMARY PT IS A 48 Y/O FEMALE, ADMITTED FOR A LLE DVT. SHE IS A&O X 4, AND ABLE TO AMBULATE TO THE BATHROOM WITH 1PA. PT WAS MEDICATED X3 FOR LLE PAIN WITH PRN IV DILAUDID. PT REMAINED ON IV HEPARIN DRIP AT 25 U/KG/HR OR 50 ML/HR. NO COMPLAINTS OF NAUSEA OR SOB. VITAL SIGNS STABLE. PT SLEPT OFF AND ON DURING THE NIGHT. NO ACUTE CHANGES IN PT CONDITION NOTED. WILL CONTINUE TO MONITOR AND TREAT PER EMAR UNTIL HAND OFF TO DAY SHIFT RN.
[2019-08-01] MEDS ORDERED: DOCU100 PO (12:09)
[2019-08-01] MEDS ORDERED: HYDMOR2 PO (12:11)
[2019-08-01] MEDS ORDERED: ONDA4ODT MM (12:12)
[2019-08-01] MEDS ORDERED: Milk Of Ma400 MG/5 M PO (12:12)
--- NOTE | 2019-08-01 13:55 | NUR ---
DISCHARGE SUMMARY PT DISCHARGED TO HOME. PT LEFT ROOM VIA WHEELCHAIR AND COIL TESTER ESCORT WITH HER MOTHER PRESENT JUST PRIOR TO THIS NOTE. PT EDUCATED ON ALL DISCHARGE INSTRUCTIONS, ALL QUESTIONS ANSWERED. IV DC'D AND BELONGINGS RETURNED. PT EDUCATED ON NEW MEDICATIONS AND TO FOLLOW UP WITH PCP AND DR KRISHNA. PT AGREES
[2019-08-01] MEDS ORDERED: ALBU90OI INH (16:25)
[2019-08-01] MEDS ORDERED: OMEP20ER PO (16:27)
[2019-08-01] MEDS ORDERED: MAXALT10 MG PO (16:27)
[2019-08-01] MEDS ORDERED: XARELTO15 MG PO (16:28)
[2019-08-01] MEDS ORDERED: BUSP10 PO (16:28)
[2019-08-01] MEDS ORDERED: IBU800 M1 PO (16:29)
[2019-08-01] MEDS ORDERED: AMIT10 PO (16:31)
[2019-08-01] MEDS ORDERED: QVAR REDIHALE10.6 G1 INH (16:32)
== END 2019-08-01 13:46 | disposition home or self-care (01) | DRG 272 ==
LOC: ER 15:52 → ERHOLD 15:53 → ICUW 15:53 → MEDS 07-31 14:02
PROVIDERS: Emergency Medicine; Family Medicine; Internal Medicine; ADMIT Internal Medicine
PROC: 04CN3ZZ Extirpation of Matter from Left Popliteal Artery, Percutaneous Approach (ICD-10-PCS; principal; 2019-07-29)
PROC: 04CD3ZZ Extirpation of Matter from Left Common Iliac Artery, Percutaneous Approach (ICD-10-PCS; 2019-07-29)
PROC: 04CF3ZZ Extirpation of Matter from Left Internal Iliac Artery, Percutaneous Approach (ICD-10-PCS; 2019-07-29)
PROC: 04CJ3ZZ Extirpation of Matter from Left External Iliac Artery, Percutaneous Approach (ICD-10-PCS; 2019-07-29)
PROC: 04CL3ZZ Extirpation of Matter from Left Femoral Artery, Percutaneous Approach (ICD-10-PCS; 2019-07-29)
PROC: 3E05317 Introduction of Other Thrombolytic into Peripheral Artery, Percutaneous Approach (ICD-10-PCS; 2019-07-29)
PROC: B44HZZ3 Ultrasonography of Bilateral Lower Extremity Arteries, Intravascular (ICD-10-PCS; 2019-07-29)
DX: I82.412 Acute embolism and thrombosis of left femoral vein (principal); E86.0 Dehydration; F32.9 Major depressive disorder, single episode, unspecified; G43.909 Migraine, unspecified, not intractable, without status migrainosus; I87.2 Venous insufficiency (chronic) (peripheral); J45.909 Unspecified asthma, uncomplicated; Z79.01 Long term (current) use of anticoagulants
CPT/HCPCS: 36005; 36010; 36415; 37187; 37238; 51702; 75820; 75825; 76937; 80048; 80053; 81001; 85025; 85049; 85610; 85730; 93971; 94640; 94760; 96365; 96366; 96375; 96376; 99152; 99153; 99285-25; C1724; C1725; C1769; C1876; C1887; C1894; G0378; J0461; J1170; J1644; J2250; J2310; J2405; J2997; J3010; J7030; Q9967

== ENCOUNTER 2019-08-01 14:26 | Inpatient (IN) | payer OTHER ==
[~2019-08-01] VITALS: Ht 193 cm; Wt 122.0 kg
[~2019-08-01 14:26] MED LIST changes: +DOCU100 PO; +HYDMOR2 PO; +HYDROCODON-ACE1 EAC3 PO; +Milk Of Ma400 MG/5 M PO; +ONDA4ODT MM
[2019-08-01 15:09] LABS: BASOPHILS ABSOLUTE AUTO 0.05 K/mm3 (0.00-0.23); BASOPHILS PERCENT AUTO 1 % (0-2); EOSINOPHILS PERCENT AUTO 3 % (0-6); Hematocrit 38.9 % (33.0-51.0); IMMATURE GRAN ABSOLUTE AUTO 0.01 K/mm3 (0.00-0.10); IMMATURE GRAN PERCENT AUTO 0 % (0-1); LYMPHOCYTES ABSOLUTE AUTO 1.16 K/mm3 (0.84-5.20); LYMPHOCYTES PERCENT AUTO 15 % (21-46); MONOCYTES ABSOLUTE AUTO 0.42 K/mm3 (0.16-1.47); MONOCYTES PERCENT AUTO 6 % (4-13); Mean Corpuscular HGB 29.7 pg (26.0-34.0); Mean Corpuscular HGB Conc 30.8 g/dL (31.5-36.5); Mean Platelet Volume 10.2 fL (9.1-12.4); NEUTROPHILS ABSOLUTE AUTO 5.75 K/mm3 (1.96-9.15); NEUTROPHILS PERCENT AUTO 76 % (41-73); Platelet Count 182 K/mm3 (150-400); RDW Coefficient Variation 13.3 % (11.7-14.2); RDW Standard Deviation 47.1 fL (35.1-46.3); Red Blood Cell Count 4.04 M/mm3 (3.80-5.20); White Blood Cell Count 7.59 K/mm3 (4.00-11.30)
[2019-08-01 15:30] LABS: Alanine Aminotransfer (ALT/SGP 105 U/L (12-78); Albumin, Blood 3.1 g/dL (3.4-5.0); Albumin/Globulin Ratio 0.7 (0.8-1.8); Alk Phos 196 U/L (50-136); Anion Gap 9 mmol/L (6-16); Aspartate Aminotrans (AST/SGOT 131 U/L (12-37); Bilirubin, Total 0.9 mg/dL (0.1-1.0); Blood Urea Nitrogen 9 mg/dL (8-24); Bun/Creatinine Ratio 12.5 (12.0-20.0); CO2, Blood 25 mmol/L (21-32); Calcium, Blood 8.9 mg/dL (8.5-10.1); Chloride, Blood 104 mmol/L (98-108); Creatinine, Blood 0.72 mg/dL (0.40-1.00); Globulin, Blood 4.4 g/dL (2.2-4.0); Glomerular Filtration Rate >60 (60-); Glucose, Blood 144 mg/dL (70-99); Potassium, Blood 3.9 mmol/L (3.5-5.5); Sodium, Blood 138 mmol/L (136-145); Total Protein, Blood 7.5 g/dL (6.4-8.2)
[2019-08-01 15:31] LABS: International Normalized Ratio 1.26; Prothrombin Time Results 13.3 Sec (9.7-11.5)
[2019-08-01 16:06] LABS: Mean Corpuscular Volume 96 fL (80-100)
[2019-08-01] MEDS ORDERED: ALBU90OI INH (16:25)
[2019-08-01] MEDS ORDERED: OMEP20ER PO (16:27)
[2019-08-01] MEDS ORDERED: MAXALT10 MG PO (16:27)
[2019-08-01] MEDS ORDERED: BUSP10 PO (16:28)
[2019-08-01] MEDS ORDERED: XARELTO15 MG PO (16:28)
[2019-08-01] MEDS ORDERED: IBU800 M1 PO (16:29)
[2019-08-01] MEDS ORDERED: AMIT10 PO (16:31)
[2019-08-01] MEDS ORDERED: QVAR REDIHALE10.6 G1 INH (16:32)
[2019-08-01 17:34] LABS: Magnesium, Blood 2.3 mg/dL (1.6-2.4); Phosphorus, Blood 3.6 mg/dL (2.5-4.9)
--- NOTE | 2019-08-01 19:47 | NUR ---
PT CAME TO ICU 184 IN NO DISTRESS. SHE WAS ON 4L NC, SAT'ING MID 90'S, SINUS RHYTHM, STABLE BP. SHE COMPLAINS OF A SLIGHT TIGHTNESS IN HER SUBSTERNAL AREA, THAT WORSENS WHEN LAYING FLAT, AND OF PAIN IN HER THIGH, GROIN/HIP AREA - THIS IS THE SAME PAIN SHES BEEN HAVING SINCE SHE FIRST GOT ADMITTED PRIOR TO THIS NEW ADMIT. SHE WAS DISCHARGED THIS MORNING AND AFTER A VAGAL RESPONSE IN [facility] SHE CAME RIGHT BACK IN (IN RESPIRATORY DISTRESS LATER TO FIND OUT SHE HAD BL PEs). SHE IS CURRENTLY IN THE PSYCHIATRIC NURSE PRACTITIONER WHERE DR KRISHNA IS PERFORMING A EKOS PROCEDURE. SHE IS IN RELATIVELY GOOD SPIRITS DESPITE HER SITUATION. HER MOM HAS BEEN INFORMED AND UPDATED. LUNG [place] ARE CLEAR IN TOP LOBES, AND DIMINISHED IN MID-LOW LOBES, LEFT LOWER LOBE WAS ABSENT FOR ME. SHE LEFT FOR THE PSYCHIATRIC NURSE PRACTITIONER AORUND ~1920. REPORT GIVEN TO HÉCTOR.
--- NOTE | 2019-08-01 20:25 | NUR ---
REPORT BRIEF REPORT RECEIVED FROM UNDERWRITING SALES REPRESENTATIVE R/T CATH IN RT GROIN, EKOS WITH TPA, HEPARIN, AND COOLANT INFUSING. FENTANYL GIVEN FOR PAIN. 2036- PT TO ICU RM 14 PER BED WITH STAFF X 3. PT VS OBTAINED, RT GROIN CATH OBSERVED AND MEDICATIONS INFUSING DISCUSSED. PT POSITIONING DISCUSSED. PT C/O NAUSEA AND ZOFRAN GIVEN. PT WILL NEED AGUILAR AND TEMP AGUILAR INSERTED. ADMIT ASSESSMENT COMPLETED BY THIS RN. WILL CONTINUE TO MONITOR THIS SHIFT.
[2019-08-01 21:16] LABS: Source, Urine Catheter
[2019-08-01 21:20] LABS: Bilirubin, Urine Neg (Neg); Blood, Urine Neg (Neg); Glucose Qualitative, Urine Neg (Neg); Ketones, Urine Neg (Neg); Leukocyte Esterase, Urine Neg (Neg); Nitrite, Urine Neg (Neg); Protein, Urine Neg (Neg); Urobilinogen, Urine NORM (Normal)
[2019-08-01 21:28] LABS: Appearance, Urine Clear (Clear); Color, Urine Yellow (P-Yellow)
[2019-08-02 03:21] LABS: BASOPHILS ABSOLUTE AUTO 0.03 K/mm3 (0.00-0.23); BASOPHILS PERCENT AUTO 1 % (0-2); EOSINOPHILS ABSOLUTE AUTO 0.13 K/mm3 (0.00-0.68); EOSINOPHILS PERCENT AUTO 3 % (0-6); Hematocrit 31.7 % (33.0-51.0); IMMATURE GRAN ABSOLUTE AUTO 0.01 K/mm3 (0.00-0.10); IMMATURE GRAN PERCENT AUTO 0 % (0-1); LYMPHOCYTES ABSOLUTE AUTO 1.14 K/mm3 (0.84-5.20); LYMPHOCYTES PERCENT AUTO 24 % (21-46); MONOCYTES ABSOLUTE AUTO 0.39 K/mm3 (0.16-1.47); MONOCYTES PERCENT AUTO 8 % (4-13); Mean Corpuscular HGB 29.4 pg (26.0-34.0); Mean Corpuscular HGB Conc 31.5 g/dL (31.5-36.5); Mean Corpuscular Volume 93 fL (80-100); Mean Platelet Volume 9.9 fL (9.1-12.4); NEUTROPHILS ABSOLUTE AUTO 2.97 K/mm3 (1.96-9.15); NEUTROPHILS PERCENT AUTO 64 % (41-73); Platelet Count 150 K/mm3 (150-400); RDW Coefficient Variation 13.3 % (11.7-14.2); RDW Standard Deviation 45.1 fL (35.1-46.3); White Blood Cell Count 4.67 K/mm3 (4.00-11.30)
[2019-08-02 03:35] LABS: Magnesium, Blood 2.2 mg/dL (1.6-2.4); Phosphorus, Blood 3.6 mg/dL (2.5-4.9)
[2019-08-02 03:37] LABS: International Normalized Ratio 1.07; Prothrombin Time Results 11.4 Sec (9.7-11.5)
--- NOTE | 2019-08-02 06:53 | NUR ---
SHIFT SUMMARY PT REMAINS FLAT IN BED THIS SHIFT, KEEPING RT LEG STRAIGHT. PT HIPS AND LEFT LEG ADJUSTED FOR PT COMFORT BY SHIFTING WEIGHT ONLY. HEART RATE REMAINS REGULAR, NSR WITH RATE 80-90s, LUNGS CLEAR BUL AND DIM BLL, SATS >92%. BOWEL SOUNDS HYPOACTIVE, ABD ROUND. TEMP AGUILAR DRAINING CLEAR YELLOW URINE TO DD. DRSG TO POSTERIOR LT KNEE R/T OLD CATH INSERT SITE. STASIS ULCER TO RT PAREDES, REDNESS NOTED. PULSES PRESENT BUT DIMINISHED TO LT FOOT. SL TO RT AC, LT OUTER AC WITH NS /C20KCL @ 150CC/HR. EKOS X2 MACHINES INFUSING VIA RT GROIN; TPA @ 0.5KG/HR OR 5CC/HR, HEPARIN @ 6CC/HR, AND NS @ 35CC/HR. CONTINUE TO MONITOR PT LABS AND TO MONITOR PT THROUGHOUT THIS SHIFT. 0720- BEDSIDE REPORT GIVEN TO DENVER HARVEY.
--- NOTE | 2019-08-02 08:14 | NUR ---
ASSUMED CARE RECIEVED REPORT FROM DENVER SOTELO. PT IS LYING FLAT IN BED AWAKE, ALERT AND ORIENTED TO SELF, SITUATION, PLACE, AND TIME. SHE HAS EKOS GOING THROUGH HER RIGHT GROIN SITE, WHICH LOOKS WNL, SOFT NONTENDER AND NO SIGNS OF HEMATOMA FORMATION. SHE HAS TWO SETS OF EKOS BOTH INFUSING HEPARIN AT 3 UNITS/KG/HR, TPA AT 0.5MG/HR, ALONG WITH THE COOLANT. HER DOSING WEIGHT FOR HEPARIN IS 100KG. SHE ALSO HAS NS WITH KCL INFUSING AT 150ML/HR. ALL GTTPS AND THE WEIGHT WAS VERIFIED WITH ORDERS AND THE DEEPAK. SHE HAS A DISTAL PULSES IN HER LOWER EXTREMETIES. SHE DENIES CHEST PAIN, BUT COMPLAINS OF 8/10 PAIN IN HER LEFT GROIN, UPPER THIGH. DENIES SOB AND NAUSEA. BED LOW AND LOCKED. CALL LIGHT WITHIN REACH.
[2019-08-02 08:41] LABS: Anion Gap 6 mmol/L (6-16); Blood Urea Nitrogen 7 mg/dL (8-24); Bun/Creatinine Ratio 11.9 (12.0-20.0); CO2, Blood 27 mmol/L (21-32); Calcium, Blood 8.5 mg/dL (8.5-10.1); Chloride, Blood 109 mmol/L (98-108); Creatinine, Blood 0.59 mg/dL (0.40-1.00); Glomerular Filtration Rate >60 (60-); Glucose, Blood 82 mg/dL (70-99); Potassium, Blood 4.2 mmol/L (3.5-5.5); Sodium, Blood 142 mmol/L (136-145); Troponin I 0.469 ng/mL (0.000-0.040)
--- NOTE | 2019-08-02 14:00 | NUR ---
UPDATE PT CONTINUES TO HAVE PAIN IN HER LEFT GROIN/UPPER THIGH AREA. SHE DESCRIBES A NEW PAIN IN THE SAME AREA THAT IS THROBBING/ACHING, BUT SHOOTING HORIZONTALLY THROUGHOUT THE AREA. VITALS ARE STABLE, SHE REMAINS ON A NC WITH 2LPM. SHE HAS BEEN HAVING A COUGH SINCE LATE LAST NIGHT. NONPRODUCTIVE. NO INCREASED WORK OF BREATHING, OR SHORTNESS OF BREATH. RIGHT GROIN SITE REMAINS SOFT, NONTENDER, AND SHOWING NO SIGNS OF HEMATOMA FORMATION. SHE HAS STRONG DISTAL PULSES IN THAT EXTREMETY, WITH A GOOD PLETH ON THE SPO2 PROBE WHEN PLACED ON THE RIGHT MIDDLE TOE. SHE DOES HAVE SOME NUMBNESS IN THE ENDS OF SOME OF HER TOES. HER RIGHT LOWER EXTREMEMTY REMAINS TO BE EDEMATOUS. STILL HAS A PALPABLE PULSE, AND NO PAIN IN THE DISTAL END OF THE EXTREMETY. SHE ALSO HAS NUMBNESS IN PARTS OF THIS FOOT.
--- NOTE | 2019-08-02 15:03 | NUR ---
TALKED WITH TOMI KRISHNA IS CONTACTING SOMEONE TO REMOVE THE EKOS (2) AND HE INSTRUCTED ME TO TURN OFF THE TPA ALONG WITH ORDERING HEPARIN PER PHARMACY TO FULLY HEPARINIZE THE PATIENT, WHICH WILL GO THROUGH THE SHEATH. THE SHEATH WILL REMAIN IN PLACE TILL SUNDAY - WHEN THEY PUT IN THE IVC FILTER.
--- NOTE | 2019-08-02 19:00 | NUR ---
REPORT BEDSIDE REPORT RECEIVED FROM DENVER HARVEY. HE REPORTS PT SHOULD REMAIN FLAT BUT CAN TILT SIDE TO SIDE LONG SHE DOES NOT BEND AT THE WAIST. EKOS REMOVED TODAY BUT SHEATH REMAINS WITH HEPARIN INFUSING AT 3CC/HR X2 PUMPS, ALSO HAS HEPARIN INFUSING AT 25CC/HR AND NS /C KCL @ 150CC/HR INFUSING VIA LT AC, SL TO RT AC, PATENT. RN REPORTS PT IS HAVING NEW PAIN ACROSS BOTH THIGHS AND HAS RECEIVED OXYCODONE & DILAUDID TODAY. PT HAS EDEMA TO LT LEG, PULSES GOOD BUT LESS TO LLE, AND NUMBNESS TO TOES. PT HAD VENOUS DOPPLER TODAY WHICH SHOWS SOME CLOTS TO BLE PER REPORT. DISCUSSED PAIN MEDS WITH PT, RESUMED CARED, AND WILL CONTINUE TO MONITOR PT THROUGHOUT THIS SHIFT.
--- NOTE | 2019-08-02 19:40 | NUR ---
SHIFT SUMMARY PT HAD UNEVENTFUL DAY. SHE REMAINED FLAT AND HAS BEEN IN PAIN, DILAUDID AND OXYCODONE HAVE HELPED. SHE IS EXPERIENCING NEW PAIN IN THE SAME GENERAL AREA, LEFT UPPER THIGH/GROIN. THIS NEW PAIN RADIATES HORIZONTALLY ACROSS HER UPPER THIGH. THE EKOS WAS PULLED OUT BY DR. ANN, PER DR KRISHNA - WHO SAID TO LEAVE THE HEPARIN TRICKLE INTO THE TWO-PORT SHEATH IN THE RIGHT FEMORAL VEIN. SO HEPARIN IS INFUSING 3 UNITS/KG/HOUR IN BOTH PORTS (6 U/KG/HR TOTAL). WELL HAS ORDERING TO HAVE THE PATIENT HEPARINIZED VIA PHARMACY - THROUGH HER LEFT AC PERIPHERAL IV SHE HAS IT INFUSING AT 25 UNITS/KG/HR, AT A RATE OF 50 ML/HR, WITH A DOSING WEIGHT OF 100KG - VERIFIED WITH DEEPAK GUEVARA). THE SHEATH IS TO REMAIN IN PLACE UNTIL SUNDAY WHEN HER IVC FILTER PLACEMENT IS SCHEDULED. SHE HAS A STRONG DISTAL PULSE IN HER RIGHT FOOT, A FAINT PULSE IN THE LEFT FOOT. BOTH FEET ARE WARM, SLIGHTLY PALE, AND HAVING A SMALL PORTION OF NUMBNESS. SHE REPORTS NO PAIN IN HER DISTAL LOWER EXTREMETIES. HER VITALS HAVE REMAINED STABLE, SHE IS ON 4L NC, BUT SHES BEEN HAVING A NAGGING COUGH. SHE CAN COUGH SOME STUFF UP BUT SHE HAS BEEN SWALLOWING, SHE STATES ITS NOT A LOT THOUGH. SHE HAD 2400ML OF URINE OUTPUT, BUT ALSO AROUND 3L OF FLUID IV INTAKE. LUNGS REMAIN CLEAR AND DIMINISHED IN THE BASES. BED LOW AND LOCKED. CALL LIGHT WITHIN REACH.
[2019-08-03 05:21] LABS: BASOPHILS ABSOLUTE AUTO 0.04 K/mm3 (0.00-0.23); BASOPHILS PERCENT AUTO 1 % (0-2); EOSINOPHILS ABSOLUTE AUTO 0.32 K/mm3 (0.00-0.68); EOSINOPHILS PERCENT AUTO 8 % (0-6); Hematocrit 30.3 % (33.0-51.0); Hemoglobin 9.3 g/dL (11.5-16.0); IMMATURE GRAN ABSOLUTE AUTO 0.01 K/mm3 (0.00-0.10); IMMATURE GRAN PERCENT AUTO 0 % (0-1); LYMPHOCYTES ABSOLUTE AUTO 0.94 K/mm3 (0.84-5.20); LYMPHOCYTES PERCENT AUTO 24 % (21-46); MONOCYTES ABSOLUTE AUTO 0.29 K/mm3 (0.16-1.47); MONOCYTES PERCENT AUTO 7 % (4-13); Mean Corpuscular HGB 29.3 pg (26.0-34.0); Mean Corpuscular HGB Conc 30.7 g/dL (31.5-36.5); Mean Platelet Volume 10.5 fL (9.1-12.4); NEUTROPHILS PERCENT AUTO 60 % (41-73); Platelet Count 132 K/mm3 (150-400); RDW Coefficient Variation 13.3 % (11.7-14.2); RDW Standard Deviation 46.8 fL (35.1-46.3); Red Blood Cell Count 3.17 M/mm3 (3.80-5.20)
[2019-08-03 05:26] LABS: Mean Corpuscular Volume 96 fL (80-100)
[2019-08-03 05:41] LABS: Alanine Aminotransfer (ALT/SGP 126 U/L (12-78); Albumin, Blood 2.4 g/dL (3.4-5.0); Albumin/Globulin Ratio 0.7 (0.8-1.8); Alk Phos 121 U/L (50-136); Anion Gap 5 mmol/L (6-16); Aspartate Aminotrans (AST/SGOT 103 U/L (12-37); Bilirubin, Total 0.5 mg/dL (0.1-1.0); Blood Urea Nitrogen 6 mg/dL (8-24); Bun/Creatinine Ratio 10.6 (12.0-20.0); CO2, Blood 26 mmol/L (21-32); Calcium, Blood 8.1 mg/dL (8.5-10.1); Chloride, Blood 111 mmol/L (98-108); Creatinine, Blood 0.57 mg/dL (0.40-1.00); Globulin, Blood 3.4 g/dL (2.2-4.0); Glomerular Filtration Rate >60 (60-); Glucose, Blood 93 mg/dL (70-99); Magnesium, Blood 2.1 mg/dL (1.6-2.4); Potassium, Blood 4.5 mmol/L (3.5-5.5); Sodium, Blood 142 mmol/L (136-145); Total Protein, Blood 5.8 g/dL (6.4-8.2)
--- NOTE | 2019-08-03 06:22 | NUR ---
SHIFT SUMMARY PT CONTINUES TO REST IN BED, REMAINS FLAT BUT ABLE TO TILT TO RT SIDE AND KEEP RT LEG STRAIGHT. SHEATH TO RT GROIN WITH HEPARIN @ 3CC/HR X2, DRSG CHANGED THIS SHIFT. PT REMAINS A&O X4, C/O PAIN AT TIMES AND OXYCODONE AND DILAUDID GIVEN PRN. SL TO RT AC, NS /c 20KCL @ 150/HR AND HEPARIN REDUCED FROM 25ML/HR TO 24ML/HR PER PHARMACY R/T PTT ELEVATED. WILL CONTINUE TO MONITOR HEPARIN DRIP. SBP 90-120s THIS SHIFT. HEART RATE REG, SB/NSR WITH RATE 50-70s. LUNGS CLEAR BUL, CLEAR & DIM BLL, SAT 89% OR GREATER ON 2L/NC, DECREASED FROM 4L/NC BY RT AND RT AWARE OF DESATS AT TIMES. BOWEL SOUNDS POSITIVE, ABD OBESE, SOFT, NONTENDER. AGUILAR DRAINING CLEAR YELLOW URINE TO DD. PT CLEAR LIQ DIET AND ABLE TO SWALLOW PILLS WITHOUT DIFFICULTY. EDEMA TO LLE 2+. STASIS ULCER TO RT PAREDES- UNCHANGED. PT C/O NUMBNESS TO LT FOOT AND TOES BILAT. WILL CONTINUE TO MONITOR THE REMAINDER OF THIS SHIFT.
--- NOTE | 2019-08-03 07:30 | NUR ---
1Received report from Kassidy GOFF. Patient is sleeping soundly flat/supine in bed. She has EKOS sheath Right groin, EKOS off and heparin at 3mcg/kg/hr infuses in each port. She also has 20ga IV in LAC dressing intact and site WNL's with heparin on standby for high PTT and NS with 20meq K infusing at150 ml/hr. Right groin site clear opsite dressing C/D/I no bleeding or oozing. She has muniz in place draining to gravity clear yellow urine. She is on 2L humidified O2 via NC and sats 92%. She also has 20ga IV in RAC anddressining intact and site WNL's and is flushed and SL's.
--- NOTE | 2019-08-03 11:25 | NUR ---
Pharmacy called and adjusted hparin to restart and reduce to 22 units/kg/hr. She tolerated liq diet well and am meds. VSS see EMR. She reamins on 2L humidified O2 at 93%. She is try to stay resting. I increased to reverse trendelenberg and tolerating well. Groin site remains stable and C/D/I .
--- NOTE | 2019-08-03 11:27 | NUR ---
Called pharmacy and let them know about EKOS lines are getting 3unit/kg/hr as well and could be /t high PTT and jenna stated unaware of heparin on EKOS still running.made new adjustment to 16 units/kg/hr currently. Medicated with dilaudid for 8/10 in thigh, leg, back. no other changes.
--- NOTE | 2019-08-03 11:45 | NUR ---
Patient is sitting up at bedside with awaiting Dr visit. No significant changes, RA, LR at 150, independent.
--- NOTE | 2019-08-03 13:30 | NUR ---
Patient has been resting most of day. She tolerated liq diet and remains supine with minor adjustments. heparin remains infuisng through EKOS cath and also 16 units/kg/hr throgh LAC with NS and 20 meq K at 150ml/hr. She has been painful intermitent and have medicated per MAR for comfort. Right groin site remains stable , no tenderness ar bleeding.
--- NOTE | 2019-08-03 17:49 | NUR ---
No changes with patient. Twin EKOS caths have heparin at 3 units/kg/hr in each line. LAC has Heparin at 16 units/kg/hr and NS with 20meq K at 150 ml/hr. She denies any SOB and is on 2 L O2 humidified and sats 94%. Repositioned slightly for comfort. She asked to do am care after 100% liq Diet. She has ongoing pain in thigh, L Leg and back that is being managed with medication per AUG. Roght groin site stable , lines intact and no mevemnet of sheath. No bleeding or oozing. VSS see EMR for all day stable VS. She MAEW but weak. She is cooperative and good spirits.
--- NOTE | 2019-08-03 18:50 | NUR ---
REPORT BRIEF BEDSIDE REPORT RECEIVED FROM DENVER DAY. PT STATES WILL USE CALL LIGHT IF NEEDS ASSIST DURING NOC. THEN CHANGES DISCUSSED; HEPARIN @ 6ML OR 3U/KG/HR INFUSING VIA SHEATH X2 TO RT GROIN AND HEPARIN INFUSING @ 16U/KG/HR OR 32ML/HR VIA LT AC AND NS /C 20KCL @ 150CC/HR; SL TO RT AC. RN STATES PT HAS PAIN TODAY AND PT WAS GIVEN DILAUDID AND OXYCODONE TODAY. ALSO PTT DOWN TO 54.7 PER LAST LAB DRAW. THIS RN WILL CONTINUE TO MONITOR PT THROUGHOUT NOC SHIFT.
[2019-08-04 05:42] LABS: Alanine Aminotransfer (ALT/SGP 113 U/L (12-78); Albumin, Blood 2.4 g/dL (3.4-5.0); Albumin/Globulin Ratio 0.7 (0.8-1.8); Alk Phos 118 U/L (50-136); Anion Gap 7 mmol/L (6-16); Aspartate Aminotrans (AST/SGOT 72 U/L (12-37); Bilirubin, Total 0.4 mg/dL (0.1-1.0); Blood Urea Nitrogen 6 mg/dL (8-24); Bun/Creatinine Ratio 9.6 (12.0-20.0); CO2, Blood 25 mmol/L (21-32); Calcium, Blood 8.3 mg/dL (8.5-10.1); Chloride, Blood 110 mmol/L (98-108); Creatinine, Blood 0.63 mg/dL (0.40-1.00); Globulin, Blood 3.6 g/dL (2.2-4.0); Glomerular Filtration Rate >60 (60-); Glucose, Blood 87 mg/dL (70-99); Potassium, Blood 4.4 mmol/L (3.5-5.5); Sodium, Blood 142 mmol/L (136-145)
[2019-08-04 06:25] LABS: BASOPHILS ABSOLUTE AUTO 0.03 K/mm3 (0.00-0.23); BASOPHILS PERCENT AUTO 1 % (0-2); EOSINOPHILS ABSOLUTE AUTO 0.29 K/mm3 (0.00-0.68); EOSINOPHILS PERCENT AUTO 7 % (0-6); Hematocrit 30.9 % (33.0-51.0); Hemoglobin 9.7 g/dL (11.5-16.0); IMMATURE GRAN ABSOLUTE AUTO 0.01 K/mm3 (0.00-0.10); IMMATURE GRAN PERCENT AUTO 0 % (0-1); LYMPHOCYTES ABSOLUTE AUTO 0.91 K/mm3 (0.84-5.20); LYMPHOCYTES PERCENT AUTO 21 % (21-46); MONOCYTES ABSOLUTE AUTO 0.31 K/mm3 (0.16-1.47); MONOCYTES PERCENT AUTO 7 % (4-13); Mean Corpuscular HGB 29.4 pg (26.0-34.0); Mean Corpuscular HGB Conc 31.4 g/dL (31.5-36.5); Mean Corpuscular Volume 94 fL (80-100); Mean Platelet Volume 10.4 fL (9.1-12.4); NEUTROPHILS ABSOLUTE AUTO 2.75 K/mm3 (1.96-9.15); NEUTROPHILS PERCENT AUTO 64 % (41-73); Platelet Count 144 K/mm3 (150-400); RDW Coefficient Variation 13.7 % (11.7-14.2)
--- NOTE | 2019-08-04 08:00 | NUR ---
INITIAL ASSESSMENT PATIENT RESTING QUIETLY IN BED UPON ENTERING ROOM. PATIENT ALERT AND ORIENTED X 4, AFEBRILE. PATIENT REPORTS N/T IN BILAT FEET. PATIENT LYING SUPINE/ FLAT AND INSTRUCTED NOT TO LIFT LEGS HAS SHEATH IN PLACE. PATIENT IS ABLE TO MOVE BUES AND WIGGLE TOES. PATIENT GIVEN PRN PAIN MED SHORT TIME AGO FOR COMPLAINT OF PAIN IN BILAT THIGHS AND LLE. PATIENT REPORTS RELIEF. PATIENT DECREASED FROM 2 L NC TO RA AND REMAINS SATTING 90% AND GREATER. LUNGS CLEAR IN UPPER LOBES AND DIMINISHED IN LOWER LOBES. PATIENT REPORTS OCCASIONAL DRY COUGH. PATIENT IN SR, HR IN THE 60S. BP STABLE. BLE PULSES 1+ IN STRENGTH. TRACE EDEMA NOTED TO BUES. NONPITTING EDEMA NOTED TO BLES. PATIENT REPORTS TENDERNESS TO PALPATION ABOVE UMBILICUS. OTHERWISE GI WNL. LAST BM TWO DAYS AGO. PATIENT NPO TO GO BACK TO [facility]. AGUILAR IN PLACE, DRAINING CLEAR, YELLOW URINE. R FEM SHEATH IN PLACE WITH HEPARIN X 2 INFUSING AT 6 MLS/ HOUR. SITE WNL- NO BLEEDING, BRUISING, HEMATOMA NOTED. SITE SOFT TO PALPATION. STASIS ULCER NOTED TO RLE. SCABS NOTED TO LLE. NS KCL 20 INFUSING AT 150 MLS/ HOUR. HEPARIN INFUSING AT 18 UNITS/ KG/ HOUR. BED LOW, CALL LIGHT IN REACH. WILL CONTINUE TO MONITOR FREQUENTLY THROUGHOUT SHIFT.
--- NOTE | 2019-08-04 09:22 | NUR ---
LINE ASSIGNER RN STOPPED HEPARIN DRIP INTO LUE AND NSKCL 20. PATIENT TAKEN TO LINE ASSIGNER.
--- NOTE | 2019-08-04 10:15 | NUR ---
PATIENT BACK FROM [facility] [employer]. SHEATH OUT. R FEM SITE STABLE- NO BLEEDING, BRUISING, HEMATOMA NOTED. SITE SOFT TO PALPATION. NO COMPLAINTS AT THIS TIME. IVC FILTER PLACED. VSS. WILL CONTINUE TO MONITOR.
--- NOTE | 2019-08-04 13:15 | NUR ---
PATIENT NOW ABLE TO MOVE AROUND AFTER HAVING SHEATH REMOVED IN [employer]ORY WORKER A FEW HOURS AGO. PATIENT SBA. PATIENT REMAINS WEAK. R GROIN SITE HAS TEGADERM IN PLACE- SITE REMAINS WNL, WITH NO BLEEDING, BRUISING, OR HEMATOMA NOTED. SITE SOFT TO PALPATION. PATIENT SATTING 90% AND GREATER ON 2 L NC. PATIENT IN SB TO SR, HR 50S TO 70S. BP STABLE. 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 PATIENT ON REGULAR DIET. ATE LUNCH AND TOLERATED WELL. AGUILAR REMOVED. PATIENT HAS HAD GOOD AMOUNT OF URINE OUT THIS SHIFT THUS FAR. HEPARIN INFUSING AT 18 UNITS/ KG/ HOUR. HEPARIN TO CONTINUE UNTIL HOSPITALIST PLACES PATIENT ON XARELTO PER INSTRUCTIONS FROM DR. KRISHNA. NO OTHER ACUTE CHANGES TO NOTE ON AT THIS TIME. NO COMPLAINTS OF PAIN. WILL CONTINUE TO MONITOR.
--- NOTE | 2019-08-04 16:29 | NUR ---
PATIENT RESTING QUIETLY IN BED. AFEBRILE. NO COMPLAINTS. REMAINS SATTING 90% AND GREATER ON 2 L NC. PATIENT IN SR, HR 60S TO 70S. BP STABLE. R GROIN SITE REMAINS STABLE. NO BLEEDING, BRUISING, HEMATOMA NOTED. SITE SOFT TO PALPATION. NO OTHER ACUTE CHANGES TO NOTE ON AT THIS TIME. WILL CONTINUE TO MONITOR.
--- NOTE | 2019-08-04 18:41 | NUR ---
SHIFT SUMMARY PATIENT REMAINED ALERT AND ORIENTED X 4, AFEBRILE. PATIENT SBA IN ROOM TO TOILET. PATIENT WEAK BUT STEADY ON FEET. PATIENT REPORTS NO DIZZINESS UPON STANDING. PATIENT GIVEN PRN PAIN MEDS FOR COMPLAINTS OF PAIN IN BILAT THIGHS AND LLE. PATIENT SATTED 90% AND GREATER ON RA TO 4 L NC. PATIENT RA AT HOME. PATIENT CURRENTLY ON 1 L NC. PATIENT STATES SHE HAS HAD OCCASIONAL DRY COUGH. LUNGS HAVE REMAINED CLEAR IN UPPER LOBES AND DIMINISHED IN LOWER LOBES. PATIENT IN SB TO SR, HR 50S TO 70S. BP REMAINED STABLE. PULSES REMAINED 1+ IN FEET. NON-PITTING EDEMA REMAINED TO BLES. PATIENT HAD 1 BM THIS SHIFT. PATIENT CONTINUED TO STATE SHE HAD MILD PAIN IN STOMACH ABOVE UMBILICUS. PATIENT ADVANCED TO REGULAR DIET; TOLERATED WELL. PATIENT HAD GOOD APPETITE. LAUREN DC'D THIS SHIFT. PATIENT HAD GOOD URINE OUTPUT. PATIENT TO PEOPLE MANAGER THIS AM; R FEM SHEATH REMOVED AND IVC FILTER PLACED. HEPARIN CURRENTLY INFUSING AT 20 UNITS/ KG/ HOUR. PATIENT RECEIVED BED BATH THIS SHIFT. PATIENT HAS NO COMPLAINTS AT THIS TIME. BED LOW, CALL LIGHT IN REACH. REPORT WILL BE GIVEN TO ASSUMING SUTURE POLISHER NURSE SHORTLY.
--- NOTE | 2019-08-04 19:05 | NUR ---
REPORT BEDSIDE REPORT RECEIVED FROM DENVER ZUNIGA. SHE REPORTS THAT PT HAD FILTER TO CATCH CLOTS PLACED TODAY. PT A&OX4, STATES PAIN IS 7/10 CURRENTLY. DENVER ZUNIGA REPORTS PT IS NOW ON REG DIET & TOLERATING WELL, HAD BATH TODAY, BR /C SBA, START XARELTO TONIGHT AND CONTINUE TO RECEIVE HEPARIN UNTIL DISCHARGE. PT IS ON HEPARIN DRIP AT 20U/KG/HR VIA LT AC, SL TO RT AC. RN ALSO REPORTS PT HAS A DRY COUGH, BP STABLE, ABDOMEN TENDER NEAR UMBILICUS, RECEIVED OXYCODONE FOR PAIN TODAY X2, AND IS CURRENTLY ON O2 @ 1L/NC. PT STATES MIGHT GO HOME TOMORROW BUT DOESN'T WANT TO PUSH IT TOO SOON. PT REMAINS ANXIOUS ABOUT LEAVING THE ICU TO GO TO ANOTHER FLOOR/UNIT. THIS RN ASSUMES PT CARE.
[2019-08-05 03:25] LABS: BASOPHILS ABSOLUTE AUTO 0.03 K/mm3 (0.00-0.23); BASOPHILS PERCENT AUTO 1 % (0-2); EOSINOPHILS ABSOLUTE AUTO 0.26 K/mm3 (0.00-0.68); EOSINOPHILS PERCENT AUTO 5 % (0-6); Hematocrit 31.4 % (33.0-51.0); Hemoglobin 9.8 g/dL (11.5-16.0); IMMATURE GRAN ABSOLUTE AUTO 0.01 K/mm3 (0.00-0.10); IMMATURE GRAN PERCENT AUTO 0 % (0-1); LYMPHOCYTES ABSOLUTE AUTO 1.31 K/mm3 (0.84-5.20); LYMPHOCYTES PERCENT AUTO 25 % (21-46); MONOCYTES ABSOLUTE AUTO 0.48 K/mm3 (0.16-1.47); MONOCYTES PERCENT AUTO 9 % (4-13); Mean Corpuscular HGB 29.4 pg (26.0-34.0); Mean Corpuscular HGB Conc 31.2 g/dL (31.5-36.5); Mean Corpuscular Volume 94 fL (80-100); Mean Platelet Volume 10.2 fL (9.1-12.4); NEUTROPHILS ABSOLUTE AUTO 3.12 K/mm3 (1.96-9.15); NEUTROPHILS PERCENT AUTO 60 % (41-73); Platelet Count 154 K/mm3 (150-400); RDW Coefficient Variation 13.7 % (11.7-14.2); RDW Standard Deviation 47.3 fL (35.1-46.3); Red Blood Cell Count 3.33 M/mm3 (3.80-5.20); White Blood Cell Count 5.21 K/mm3 (4.00-11.30)
[2019-08-05 03:44] LABS: Alanine Aminotransfer (ALT/SGP 93 U/L (12-78); Albumin, Blood 2.6 g/dL (3.4-5.0); Albumin/Globulin Ratio 0.7 (0.8-1.8); Alk Phos 112 U/L (50-136); Anion Gap 6 mmol/L (6-16); Aspartate Aminotrans (AST/SGOT 48 U/L (12-37); Bilirubin, Total 0.6 mg/dL (0.1-1.0); Blood Urea Nitrogen 8 mg/dL (8-24); Bun/Creatinine Ratio 10.7 (12.0-20.0); CO2, Blood 28 mmol/L (21-32); Calcium, Blood 8.7 mg/dL (8.5-10.1); Chloride, Blood 106 mmol/L (98-108); Creatinine, Blood 0.75 mg/dL (0.40-1.00); Globulin, Blood 3.5 g/dL (2.2-4.0); Glomerular Filtration Rate >60 (60-); Glucose, Blood 98 mg/dL (70-99); Potassium, Blood 4.4 mmol/L (3.5-5.5); Sodium, Blood 140 mmol/L (136-145); Total Protein, Blood 6.1 g/dL (6.4-8.2)
--- NOTE | 2019-08-05 05:54 | NUR ---
SHIFT SUMMARY PT RESTING IN BED THIS SHIFT, POSITIONS SELF FOR COMFORT, UP TO COMMODE WITH SBA. PT HAS DIFFICULTY LIFTING LLE. PT A&OX4, C/O PAIN AT TIMES AND OXYCODONE GIVEN PRN. HEPARIN INFUSES THIS SHIFT VIA LT OUTER AC AND HEPARIN ADJUSTED FROM 20U/KG/HR TO 22U/KG/HR PER PHARMACY JULIETA.HEART RATE REGULAR, SB/NSR, B/P WNL, AFEBRILE. LUNGS CTA, DIMINISHED IN BASES BILAT, SATS >90% ON 1L/NC. BOWEL SOUNDS PRESENT, ABDOMEN TENDER JUST ABOVE UMBILICUS AND BRUISE NOTED TO AREA. EDEMA NOTED TO BLE, GREATER TO LLE. DRSG TO RT GROIN PREVIOUS CATH SITE D/I WITH OLD DRIED DRNG NOTED. PT CONTINUES TO STATE TOES ARE TINGLING BILAT. PT WORE SCDs X2-3 HOURS THEN REMOVED R/T LEGS "SORE". WILL CONTINUE TO MONITOR PT THE REMAINDER OF THIS SHIFT.
--- NOTE | 2019-08-05 07:12 | NUR ---
Received report from Kassidy GOFF. Patient lying supine in bed and awake and able to communicate her needs. She is on 1L humidified O2 via NC and sats 95-99%. She states 7/10 pain and no current need for intervention. She tried SCD's shortly and staed caused more irritation and wanted them off. She has 20ga RGFA dressining intact and site WNL's and is infusing Heparin at 22 units/kg/hr. Lab in drawing current ptt. Right groin site from EKOS bruising but soft and palpable.
--- NOTE | 2019-08-05 15:47 | NUR ---
Patient up to bathroom with minimal assist and was worked by PT and did well and OT to follow tomorrow. Patient VSS see EMR. No significant changes and will be transferred to PCU 15. She will be possibly discharged in a day or so after stronger. Heparin has been off and will continue. Dr Bejarano has in with patient and patient prefers to stay one more day for strengthening.
--- NOTE | 2019-08-05 17:42 | NUR ---
TRANSFER NOTE RECEIVED REPORT FROM DENVER DAY IN ICU. PT TO ROOM AT 1735. PT 1 PERSON ASSIST TO BATHROOM. PT ORIENTED TO ROOM AND CALL LIGHT. PT A&Ox4; CALM AND COOPERATIVE WTIH CARE. PT ON 1L O2 VIA NC; LS DIM T/O. RIGHT GROIN DRESSING INTACT; NO BRUISING, BLEEDING OR HEMATOMA NOTED. PT HAS BRUISING TO MID ABD, SOFT BUT TENDER. NSR PER TELE IN 60'S. BLE SWELLING NOTED, PT STATES SWELLING HAS REDUCED. VSS. NO OTHER ACUTE CHANGES NOTED; WILL CONTINUE TO MONITOR UNITL REPORT GIVEN TO ONCOMING RN.
--- NOTE | 2019-08-05 18:49 | NUR ---
Gave face to face report to Ana RN took all personal belonging to room PCU 15 and then returned to room and took patient via wheelchair and she self transferred to bed. GUNITE NOZZLE OPERATOR in room and notified RN she was in room as well. VSS see EMR.
[2019-08-06 04:10] LABS: Hematocrit 30.7 % (33.0-51.0); Hemoglobin 9.5 g/dL (11.5-16.0); Mean Corpuscular HGB 28.9 pg (26.0-34.0); Mean Corpuscular HGB Conc 30.9 g/dL (31.5-36.5); Mean Corpuscular Volume 93 fL (80-100); Platelet Count 160 K/mm3 (150-400); RDW Coefficient Variation 13.7 % (11.7-14.2); RDW Standard Deviation 46.9 fL (35.1-46.3); Red Blood Cell Count 3.29 M/mm3 (3.80-5.20); White Blood Cell Count 4.29 K/mm3 (4.00-11.30)
[2019-08-06 04:37] LABS: Alanine Aminotransfer (ALT/SGP 96 U/L (12-78); Albumin, Blood 2.9 g/dL (3.4-5.0); Albumin/Globulin Ratio 0.8 (0.8-1.8); Alk Phos 108 U/L (50-136); Anion Gap 3 mmol/L (6-16); Aspartate Aminotrans (AST/SGOT 65 U/L (12-37); Bilirubin, Total 0.5 mg/dL (0.1-1.0); Blood Urea Nitrogen 9 mg/dL (8-24); CO2, Blood 31 mmol/L (21-32); Calcium, Blood 8.9 mg/dL (8.5-10.1); Chloride, Blood 105 mmol/L (98-108); Creatinine, Blood 0.75 mg/dL (0.40-1.00); Globulin, Blood 3.6 g/dL (2.2-4.0); Glomerular Filtration Rate >60 (60-); Glucose, Blood 87 mg/dL (70-99); Potassium, Blood 3.8 mmol/L (3.5-5.5); Sodium, Blood 139 mmol/L (136-145); Total Protein, Blood 6.5 g/dL (6.4-8.2)
--- NOTE | 2019-08-06 05:52 | NUR ---
SHIFT SUMMAR: PATIENT DOING WELL ON RA, RANGING BETWEEN 95% AND 100% O2. VSS, MEDICATED X2 THIS SHIFT FOR PAIN. RIGHT GROIN DRESSING REMAINS UNCHANGED, NO SIGN OF BLEEDING OR HEMATOMA NOTED. PATIENT UP TO THE BATHROOM WITH SBA, NO OTHER ISSUES NOTED, CALL LIGHT WITHIN REACH, BED LOW AND LOCKED.
--- NOTE | 2019-08-06 07:55 | NUR ---
ASSUMPTION OF CARE PT SITTING UP IN BED. PT ALERT AND ORIENTEDx4; CALM AND COOPERATIVE WITH CARE. PT 1 PERSON ASSIST TO BATHROOM. PT APPEARS TO BE ANXIOUS WHEN DISCUSSING DISCHARGE PLANS. PT 97-99% ON RA, DENIES SOB AT REST, REPORTS MILD SOB WITH AMBULATION; BREATHING EVEN AND UNLABORED. PT ON XARELTO FOR PE AND DVT. RIGHT FEMORAL GROIN SITE DRESSING DRY AND INTACT, NO CHANGES FROM PREVIOUS SHIFT. VSS. DR MORALES AT BEDSIDE. WILL CONTINUE TO MONITOR.
[2019-08-06] MEDS ORDERED: HYDMOR2 PO (08:36)
--- NOTE | 2019-08-06 09:55 | NUR ---
DISCHARGE SUMMARY PT A&Ox4; CALM AND COOPERATIVE WITH CARE. PT WALKING IN SHAW WITH OT THIS AM. PT REPORTS PAIN TO LLE; MEDICATED FOR PAIN PRIOR TO SHIFT CHANGE. PT DENIES SOB, CHEST PAIN/PRESSURE; DIZZINESS AND NAUSEA. PT "MILD" SOB WITH EXERTION; DENIES AT REST; SPO2 >95% AT REST AND WITH AMBULATION. PT ANXIOUS ABOUT DISCHARGE; EXPRESSING CONCERNS WITH DR MORALES AND RN, TEARFUL AT TIMES; DR MORALES AND THIS RN ADDRESSED CONCERNS AND EDUCATED PT. PT EDUCATED ON DISCAHRGE INSTUCTIONS, FOLLOW UP APPOINTMENTS AND MEDICATIONS. PRESCRIPTIONS FROM LAST VISIT AWAITIN CREDIT CARD SPECIALIST AT [facility]; DISCUSSED XARELTO WITH PT; TO TAKE WITH FOOD AND DISCUSSED SIDE EFFECTS. PT PLANNING TO FOLLOW UP WITH DR VO TOMORROW; AND WILL DR DIETRICH AND DR MELENDEZ OFFICE TO SCHEDULE APPOINTMENTS. EDUCATED PT ON ACTIVITY TOLERATED; PLAN FOR RESTING IF NEED. VSS. PT LEFT ROOM VIA WHEELCHAIR AT 0940; PT STABLE UPON DISCHARGE.
== END 2019-08-06 09:40 | disposition home or self-care (01) | DRG 168 ==
LOC: ER 14:26 → ICUW 16:56 → PCU 08-05 17:26
PROVIDERS: Internal Medicine; Physician Assistant; Radiology Diagnostic Radiology; ADMIT Family Medicine
PROC: 3E03317 Introduction of Other Thrombolytic into Peripheral Vein, Percutaneous Approach (ICD-10-PCS; principal; 2019-08-01)
PROC: B5191ZZ Fluoroscopy of Inferior Vena Cava using Low Osmolar Contrast (ICD-10-PCS; 2019-08-01)
PROC: 06H03DZ Insertion of Intraluminal Device into Inferior Vena Cava, Percutaneous Approach (ICD-10-PCS; 2019-08-04)
DX: I26.92 Saddle embolus of pulmonary artery without acute cor pulmonale (principal); J45.909 Unspecified asthma, uncomplicated; G43.909 Migraine, unspecified, not intractable, without status migrainosus; K44.9 Diaphragmatic hernia without obstruction or gangrene; I50.811 Acute right heart failure; R74.0 Nonspecific elevation of levels of transaminase and lactic acid dehydrogenase [LDH]; I73.9 Peripheral vascular disease, unspecified; R09.02 Hypoxemia
CPT/HCPCS: 36014; 36015; 36415; 37191; 37211; 51702; 71260; 75743; 75825; 76937; 80048; 80053; 81003; 83735; 83880; 84100; 84484; 85025; 85027; 85347; 85384; 85610; 85730; 93005; 93010; 93306; 93970; 94640; 94760; 96365-59; 96366; 96375-59; 97110; 97162; 97166; 97535; 99152; 99285-25; C1757; C1769; C1880; C1894; J1170; J1644; J2250; J2405; J2997; J3010; J3480; J7030; J7040; Q9967

== ENCOUNTER 2019-11-06 10:03 | Day surgery (SDC) | payer OTHER ==
[~2019-11-06] VITALS: Ht 193 cm; Wt 118.2 kg
[~2019-11-06 10:03] MED LIST changes: +AMIT10 PO; +BUSP10 PO; +IBU800 M1 PO; +MAXALT10 MG PO; +OMEP20ER PO; +QVAR REDIHALE10.6 G1 INH; +XARELTO15 MG PO
[2019-11-06] MEDS ORDERED: SERT50 PO (10:24)
[2019-11-06] MEDS ORDERED: CLON.5 PO (10:24)
--- NOTE | 2019-11-06 12:15 | NUR ---
IV DC'D, CATH INTACT. PT GIVEN DC INSTRUCTIONS AND FOLLOW UP INFORMATION. VERBALIZED UNDERSTANDING. OUT TO CAR VIA WHEELCHAIR. RIGHT JUGULAR SITE CLEAN AND DRY AT TIME OF DISCHARGE, NO BLEEDING OR SWELLING NOTED.
== END 2019-11-06 12:29 | disposition home or self-care (01) ==
LOC: MHTC 10:03
DX: Z45.2 Encounter for adjustment and management of vascular access device (principal); I87.2 Venous insufficiency (chronic) (peripheral); I10 Essential (primary) hypertension; J45.909 Unspecified asthma, uncomplicated; F32.9 Major depressive disorder, single episode, unspecified; Z88.8 Allergy status to other drugs, medicaments and biological substances; Z91.030 Bee allergy status; Z91.040 Latex allergy status; Z79.899 Other long term (current) drug therapy; Z79.01 Long term (current) use of anticoagulants
CPT/HCPCS: 37193; 76937; 99152; C1769; C1773; C1880; C1894; J1644; J2250; J3010; J7030; J7040; Q9967

== ENCOUNTER → 2019-11-11 | Outpatient (CLI) | payer OTHER ==
[~2019-11-11] MED LIST changes: +CLON.5 PO; +SERT50 PO
== END | disposition home or self-care (01) ==
LOC: LAB 17:11 → LAB SHORT 17:11
PROVIDERS: Internal Medicine Hematology & Oncology
DX: D51.8 Other vitamin B12 deficiency anemias (principal); D50.9 Iron deficiency anemia, unspecified
CPT/HCPCS: 82607; 82746; 83540; 83550

== ENCOUNTER → 2019-12-29 | Outpatient (CLI) | payer OTHER ==
[~2019-12-29] MED LIST changes: +PRAZ1 PO
[2019-12-29 14:33] LABS: BASOPHILS ABSOLUTE AUTO 0.05 K/mm3 (0.00-0.23); BASOPHILS PERCENT AUTO 1 % (0-2); EOSINOPHILS ABSOLUTE AUTO 0.05 K/mm3 (0.00-0.68); EOSINOPHILS PERCENT AUTO 1 % (0-6); Hematocrit 40.3 % (33.0-51.0); Hemoglobin 12.8 g/dL (11.5-16.0); IMMATURE GRAN ABSOLUTE AUTO 0.02 K/mm3 (0.00-0.10); IMMATURE GRAN PERCENT AUTO 0 % (0-1); LYMPHOCYTES ABSOLUTE AUTO 1.46 K/mm3 (0.84-5.20); LYMPHOCYTES PERCENT AUTO 19 % (21-46); MONOCYTES ABSOLUTE AUTO 0.44 K/mm3 (0.16-1.47); MONOCYTES PERCENT AUTO 6 % (4-13); Mean Corpuscular HGB 30.6 pg (26.0-34.0); Mean Corpuscular HGB Conc 31.8 g/dL (31.5-36.5); Mean Corpuscular Volume 96 fL (80-100); Mean Platelet Volume 10.1 fL (9.1-12.4); NEUTROPHILS ABSOLUTE AUTO 5.65 K/mm3 (1.96-9.15); NEUTROPHILS PERCENT AUTO 74 % (41-73); Platelet Count 238 K/mm3 (150-400); RDW Standard Deviation 59.8 fL (35.1-46.3); Red Blood Cell Count 4.18 M/mm3 (3.80-5.20); White Blood Cell Count 7.67 K/mm3 (4.00-11.30)
== END ==
LOC: LAB SHORT 12:00 → LAB 12:00
PROVIDERS: Internal Medicine Hematology & Oncology
DX: D50.9 Iron deficiency anemia, unspecified (principal)
CPT/HCPCS: 85025

== ENCOUNTER 2020-04-27 12:48 | Emergency (ER) | payer OTHER ==
[~2020-04-27] VITALS: Ht 193 cm; Wt 113.4 kg
[2020-04-27 13:20] LABS: BASOPHILS ABSOLUTE AUTO 0.05 K/mm3 (0.00-0.23); BASOPHILS PERCENT AUTO 1 % (0-2); EOSINOPHILS ABSOLUTE AUTO 0.13 K/mm3 (0.00-0.68); EOSINOPHILS PERCENT AUTO 3 % (0-6); Hematocrit 39.6 % (33.0-51.0); Hemoglobin 12.9 g/dL (11.5-16.0); IMMATURE GRAN ABSOLUTE AUTO 0.01 K/mm3 (0.00-0.10); IMMATURE GRAN PERCENT AUTO 0 % (0-1); LYMPHOCYTES ABSOLUTE AUTO 1.41 K/mm3 (0.84-5.20); LYMPHOCYTES PERCENT AUTO 27 % (21-46); MONOCYTES ABSOLUTE AUTO 0.31 K/mm3 (0.16-1.47); MONOCYTES PERCENT AUTO 6 % (4-13); Mean Corpuscular HGB 30.9 pg (26.0-34.0); Mean Corpuscular HGB Conc 32.6 g/dL (31.5-36.5); Mean Corpuscular Volume 95 fL (80-100); Mean Platelet Volume 9.8 fL (9.1-12.4); NEUTROPHILS ABSOLUTE AUTO 3.33 K/mm3 (1.96-9.15); NEUTROPHILS PERCENT AUTO 64 % (41-73); Platelet Count 225 K/mm3 (150-400); RDW Coefficient Variation 13.5 % (11.7-14.2); RDW Standard Deviation 47.4 fL (35.1-46.3); Red Blood Cell Count 4.17 M/mm3 (3.80-5.20); White Blood Cell Count 5.24 K/mm3 (4.00-11.30)
[2020-04-27 13:36] LABS: Alanine Aminotransfer (ALT/SGP 23 U/L (12-78); Albumin, Blood 3.7 g/dL (3.4-5.0); Alk Phos 73 U/L (50-136); Anion Gap 5 mmol/L (6-16); Aspartate Aminotrans (AST/SGOT 15 U/L (12-37); Bilirubin, Total 0.7 mg/dL (0.1-1.0); Blood Urea Nitrogen 12 mg/dL (8-24); Bun/Creatinine Ratio 20.1 (12.0-20.0); CO2, Blood 24 mmol/L (21-32); Calcium, Blood 9.1 mg/dL (8.5-10.1); Chloride, Blood 110 mmol/L (98-108); Globulin, Blood 3.7 g/dL (2.2-4.0); Glomerular Filtration Rate >60 (60-); Glucose, Blood 89 mg/dL (70-99); Potassium, Blood 3.4 mmol/L (3.5-5.5); Sodium, Blood 139 mmol/L (136-145); Total Protein, Blood 7.4 g/dL (6.4-8.2); Troponin I <0.015 ng/mL (0.000-0.040)
[2020-04-27] MEDS ORDERED: Roxicodone5 MG PO (15:42)
== END 2020-04-27 15:56 | disposition home or self-care (01) ==
LOC: ER 12:48
PROVIDERS: Physician Assistant
DX: K44.9 Diaphragmatic hernia without obstruction or gangrene (principal); Z79.899 Other long term (current) drug therapy
CPT/HCPCS: 36415; 71046; 71260; 80053; 84484; 85025; 93005; 93010; 99285-25; Q9967

== ENCOUNTER 2020-05-26 06:02 | Day surgery (SDC) | payer OTHER ==
[~2020-05-26] VITALS: Ht 193 cm; Wt 118.6 kg
[~2020-05-26 06:02] MED LIST changes: +EPINEPHRIN0.3 MG/0.1 IJ; +Neurontin 300300 MG PO; +Roxicodone5 MG PO; +TRIDERM28.4 GM TOP; +XARELTO20 MG PO
[2020-05-26] MEDS ORDERED: TERB250 PO (06:39)
[2020-05-26] MEDS ORDERED: FAMO20 PO (06:40)
[2020-05-26] MEDS ORDERED: OMEP20ER PO (06:40)
--- NOTE | 2020-05-26 12:42 | NUR ---
pt arrived to unit from pacu TRANSFERRED TO BED. MEDICATED PT PER ORDERS FOR 8/10 PAIN, NOW RATES AT 6/10. CALL LIGHT IN REACH. DENIES ANY OTHER NEEDS AT THIS TIME.
--- NOTE | 2020-05-26 14:03 | NUR ---
REPORTED OFF TO RAFAEL CHAMBERS RN.
--- NOTE | 2020-05-26 15:49 | NUR ---
9554 ASSUMED CARE OF PATIENT. PT REPORTS ABD PAIN OF 7-8/10 MEDICATED WITH FENTANYL. PT DENIES NAUSEA. ASSISTED UP TO BATHROOM WITH 1 PERSON ASSIST
--- NOTE | 2020-05-26 17:45 | NUR ---
PT MEDICATED FOR PAIN AND REPORTS SOME RELIEF- STATES HAS A PRESSURE/DISCOMFORT MID CHEST. DR BERNARD IN TO SEE PATIENT AND AWARE OF PRESSURE/DISCOMFORT. MEDICATED X1 FOR SLIGHT NAUSEA WITH RELIEF. PT TAKING SMALL AMOUNT OF ICE CHIPS. PT HAS BEEN OOB TO VOID
--- NOTE | 2020-05-27 06:41 | NUR ---
SUMMARY CALLED DR VAUGHAN AND BRYN ORDER GIVEN FOR PAIN PT VERB SUBLIMAZE INEFFECTIVE. PT VERB ADEQUATE PAIN CONTROL WITH DILAUDID PER NEW ORDERS. NO N/V CLEMENT. AMBULATORY FOR BRP.
--- NOTE | 2020-05-27 17:00 | NUR ---
SUMMARY NO ACUTE CHANGES T/O SHIFT. PT TOLERATED FULL LIQUID LUNCH. PT REPORTS PAINFUL W/MOVEMENT. MEDICATED PER ORDERS FOR PAIN; PT RESTING W/EYES CLOSED. PT VOIDING WELL. CALL LIGHT IN REACH.
[2020-05-27] MEDS ORDERED: ONDA4ODT PO (17:23)
[2020-05-27] MEDS ORDERED: HYDR1TAB94 PO (17:23)
--- NOTE | 2020-05-27 18:13 | NUR ---
DISCHARGING DC'D IV, CATHETER INTACT. MEDICATED PT PER ORDERS FOR PAIN. REVIEWED DC ORDERS W/PT; VERBALIZED UNDERSTANDING. PT SIGNED DC PAPERWORK. AWAITING RIDE.
--- NOTE | 2020-05-27 18:30 | NUR ---
discharged PT LEFT UNIT IN WC W/POSSESSIONS AND DC PAPERWORK IN HAND TO RIDE AWAITING OUTSIDE.
== END 2020-05-27 18:30 | disposition home or self-care (01) ==
LOC: ORSCMMR 06:02 → ORD 07:30 → ORSCMMR 07:30 → SURS 12:31 → ORSCMMR 05-27 18:30
PROVIDERS: Surgery
PROC: 0DV44ZZ Restriction of Esophagogastric Junction, Percutaneous Endoscopic Approach (ICD-10-PCS; principal; 2020-05-26 07:30)
PROC: 0BUT4JZ Supplement Diaphragm with Synthetic Substitute, Percutaneous Endoscopic Approach (ICD-10-PCS; principal; 2020-05-26 07:30)
DX: K44.9 Diaphragmatic hernia without obstruction or gangrene (principal); K21.9 Gastro-esophageal reflux disease without esophagitis; Z79.899 Other long term (current) drug therapy; Z79.01 Long term (current) use of anticoagulants
CPT/HCPCS: A9270-GY; C1781; C9113; J0330; J0690; J1170; J1644; J2250; J2405; J2704; J2710; J2765; J3010; J7120

== ENCOUNTER → 2020-09-22 | Outpatient (CLI) | payer OTHER ==
[~2020-09-22] MED LIST changes: +FAMO20 PO; +ONDA4ODT PO; +TERB250 PO
[2020-09-24 16:10] LABS: HPV 16 Negative (Negative); HPV 18 Negative (Negative); HPV OTHER HR TYPES Negative (Negative)
== END ==
LOC: LAB SHORT 19:08
PROVIDERS: Registered Nurse Community Health
DX: Z12.4 Encounter for screening for malignant neoplasm of cervix (principal)
CPT/HCPCS: 87624; G0123

== ENCOUNTER 2020-12-27 09:35 | Emergency (ER) | payer OTHER ==
[~2020-12-27] VITALS: Ht 193 cm; Wt 115.7 kg
[2020-12-27 11:11] LABS: BASOPHILS ABSOLUTE AUTO 0.05 K/mm3 (0.00-0.23); BASOPHILS PERCENT AUTO 1 % (0-2); EOSINOPHILS ABSOLUTE AUTO 0.18 K/mm3 (0.00-0.68); EOSINOPHILS PERCENT AUTO 3 % (0-6); Hematocrit 42.5 % (33.0-51.0); Hemoglobin 13.9 g/dL (11.5-16.0); IMMATURE GRAN ABSOLUTE AUTO 0.02 K/mm3 (0.00-0.10); IMMATURE GRAN PERCENT AUTO 0 % (0-1); LYMPHOCYTES PERCENT AUTO 27 % (21-46); MONOCYTES ABSOLUTE AUTO 0.48 K/mm3 (0.16-1.47); MONOCYTES PERCENT AUTO 9 % (4-13); Mean Corpuscular HGB Conc 32.7 g/dL (31.5-36.5); Mean Corpuscular Volume 92 fL (80-100); Mean Platelet Volume 10.3 fL (9.1-12.4); NEUTROPHILS ABSOLUTE AUTO 3.12 K/mm3 (1.96-9.15); NEUTROPHILS PERCENT AUTO 59 % (41-73); Platelet Count 227 K/mm3 (150-400); RDW Standard Deviation 43.8 fL (35.1-46.3); Red Blood Cell Count 4.63 M/mm3 (3.80-5.20); White Blood Cell Count 5.25 K/mm3 (4.00-11.30)
[2020-12-27 11:26] LABS: Anion Gap 3 mmol/L (6-16); Blood Urea Nitrogen 10 mg/dL (8-24); Bun/Creatinine Ratio 15.7 (12.0-20.0); CO2, Blood 30 mmol/L (21-32); Calcium, Blood 8.9 mg/dL (8.5-10.1); Chloride, Blood 105 mmol/L (98-108); Creatinine, Blood 0.64 mg/dL (0.40-1.00); Glomerular Filtration Rate >60 (60-); Glucose, Blood 83 mg/dL (70-99); Potassium, Blood 4.1 mmol/L (3.5-5.5); Sodium, Blood 138 mmol/L (136-145)
== END 2020-12-27 12:41 | disposition home or self-care (01) ==
LOC: ER 09:35
PROVIDERS: Physician Assistant
DX: R21 Rash and other nonspecific skin eruption (principal); Z79.899 Other long term (current) drug therapy
CPT/HCPCS: 36415; 80048; 85025; 93970; 99284-25

== ENCOUNTER 2021-03-23 09:17 | Day surgery (SDC) | payer OTHER ==
[2021-03-22 09:48] LABS: BASOPHILS ABSOLUTE AUTO 0.06 K/mm3 (0.00-0.23); BASOPHILS PERCENT AUTO 1 % (0-2); EOSINOPHILS ABSOLUTE AUTO 0.45 K/mm3 (0.00-0.68); EOSINOPHILS PERCENT AUTO 10 % (0-6); Hematocrit 41.8 % (33.0-51.0); Hemoglobin 13.5 g/dL (11.5-16.0); IMMATURE GRAN ABSOLUTE AUTO 0.01 K/mm3 (0.00-0.10); IMMATURE GRAN PERCENT AUTO 0 % (0-1); LYMPHOCYTES ABSOLUTE AUTO 0.99 K/mm3 (0.84-5.20); LYMPHOCYTES PERCENT AUTO 22 % (21-46); MONOCYTES ABSOLUTE AUTO 0.38 K/mm3 (0.16-1.47); MONOCYTES PERCENT AUTO 8 % (4-13); Mean Corpuscular HGB 30.5 pg (26.0-34.0); Mean Corpuscular HGB Conc 32.3 g/dL (31.5-36.5); Mean Corpuscular Volume 94 fL (80-100); NEUTROPHILS ABSOLUTE AUTO 2.63 K/mm3 (1.96-9.15); NEUTROPHILS PERCENT AUTO 58 % (41-73); Platelet Count 208 K/mm3 (150-400); RDW Coefficient Variation 13.6 % (11.7-14.2); RDW Standard Deviation 47.6 fL (35.1-46.3); Red Blood Cell Count 4.43 M/mm3 (3.80-5.20); White Blood Cell Count 4.52 K/mm3 (4.00-11.30)
[2021-03-22 10:01] LABS: Anion Gap 4 mmol/L (6-16); Blood Urea Nitrogen 8 mg/dL (8-24); Bun/Creatinine Ratio 10.5 (12.0-20.0); CO2, Blood 27 mmol/L (21-32); Calcium, Blood 9.2 mg/dL (8.5-10.1); Chloride, Blood 111 mmol/L (98-108); Creatinine, Blood 0.76 mg/dL (0.40-1.00); Glomerular Filtration Rate >60 (60-); Glucose, Blood 64 mg/dL (70-99); Potassium, Blood 3.8 mmol/L (3.5-5.5); Sodium, Blood 142 mmol/L (136-145)
[~2021-03-23] VITALS: Ht 193 cm; Wt 123.7 kg
--- NOTE | 2021-03-23 11:03 | NUR ---
03/23/21 1103 Arabella RiveraO-LATEX AGUILAR CATHETER INSERTED WITH PROCEDURE BY ORD.LMA.AT 1027 NOTED CLEAR, LIGHT YELLOW RETURN. AGUILAR SECURED FOR THE PROCEDURE.
--- NOTE | 2021-03-23 13:43 | NUR ---
PATIENT ARRIVED TO THE FLOOR FROM PACU, AAOX4, SLEEPY BUT AWAKENS EASILY. NO SIGNS OR SYMPTOMS ACUTE DISTRESS NOTED, COMPLAINS OF CRAMPING IN ABDOMEN, WILL MEDICATE WITH PO MEDS. VS STABLE.
--- NOTE | 2021-03-23 15:34 | NUR ---
DISCHARGE INSTRUCTIONS GIVEN TO PATIENT. IV REMOVED. PATIENT VERBALIZED UNDERSTANDING OF DISCHARGE INSTRUCTIONS. PATIENT HAS BEEN UP TO URINATE WITH NO ISSUES, WALKED THE SHAW WITH NO ASSIST, ATE LUNCH WITH NO NAUSEA, TOOK PAIN MED BY MOUTH AND WAS EFFECTIVE FOR PAIN. TOLERATING PO WITH NO ISSUES. NO SIGNS OR SYMPTOMS ACUTE DISTRESS NOTED. DISCHAGED VIA WHEELCHAIR, DAUGHTER IS PICKING HER UP IN PRIVATE VEHICLE.
== END 2021-03-23 15:15 | disposition home or self-care (01) ==
LOC: ORSCMMR 09:17 → ORD 11:00 → ORSCMMR 11:00 → SURS 13:18 → ORSCMMR 15:15 → SURS 15:15
PROVIDERS: Obstetrics & Gynecology
PROC: 8E0W4CZ Robotic Assisted Procedure of Trunk Region, Percutaneous Endoscopic Approach (ICD-10-PCS; principal; 2021-03-23 11:00)
PROC: 0UT94ZZ Resection of Uterus, Percutaneous Endoscopic Approach (ICD-10-PCS; principal; 2021-03-23 11:00)
PROC: 0UT54ZZ Resection of Right Fallopian Tube, Percutaneous Endoscopic Approach (ICD-10-PCS; principal; 2021-03-23 11:00)
DX: N92.1 Excessive and frequent menstruation with irregular cycle (principal); N94.6 Dysmenorrhea, unspecified; D25.9 Leiomyoma of uterus, unspecified; N80.0 Endometriosis of uterus; N83.8 Other noninflammatory disorders of ovary, fallopian tube and broad ligament; I10 Essential (primary) hypertension; Z87.891 Personal history of nicotine dependence; F43.10 Post-traumatic stress disorder, unspecified; F41.8 Other specified anxiety disorders; E66.9 Obesity, unspecified; Z68.33 Body mass index [BMI] 33.0-33.9, adult; Z79.899 Other long term (current) drug therapy
CPT/HCPCS: 58571; S2900; 36415; 80048; 84703; 85025; 86850; 86900; 86901; 88307; A9270; J0690; J1100; J1885; J2405; J2704; J3010; J7120

== ENCOUNTER → 2021-10-13 | Outpatient (CLI) | payer OTHER | END | disposition home or self-care (01) | LOC: LAB 18:42 → LAB SHORT 18:42 | DX: N39.0 Urinary tract infection, site not specified (principal) | CPT/HCPCS: 87086 ==

== ENCOUNTER → 2021-10-25 | Outpatient (CLI) | payer OTHER ==
[2021-10-26 10:52] LABS: Candida species (DNA Probe) Negative (NEGATIVE); G. vaginalis (DNA Probe) Negative (NEGATIVE); T. vaginalis (DNA Probe) Negative (NEGATIVE)
== END ==
LOC: LAB 16:10 → LAB SHORT 16:10
PROVIDERS: Registered Nurse Community Health
DX: N39.41 Urge incontinence (principal); B37.3 Candidiasis of vulva and vagina
CPT/HCPCS: 83036; 87480; 87510; 87660

== ENCOUNTER 2022-05-20 11:28 | Emergency (ER) | payer OTHER ==
[~2022-05-20] VITALS: Ht 193 cm; Wt 122.5 kg
[2022-05-20] MEDS ORDERED: CYCL10 PO (14:44)
== END 2022-05-20 14:29 | disposition home or self-care (01) ==
LOC: ER 11:28
DX: S50.02XA Contusion of left elbow, initial encounter (principal); S39.012A Strain of muscle, fascia and tendon of lower back, initial encounter; W01.190A Fall on same level from slipping, tripping and stumbling with subsequent striking against furniture, initial encounter; J45.909 Unspecified asthma, uncomplicated; Z91.038 Other insect allergy status; Z91.040 Latex allergy status; Z91.048 Other nonmedicinal substance allergy status; Z79.899 Other long term (current) drug therapy
CPT/HCPCS: 99283

== ENCOUNTER 2023-04-26 07:17 | Emergency (ER) | payer OTHER ==
[~2023-04-26] VITALS: Ht 193 cm; Wt 122.5 kg
[~2023-04-26 07:17] MED LIST changes: +AMOCLA875 PO; +CYCL10 PO
[2023-04-26] MEDS ORDERED: AMITRIPTYLINE H25 MG PO (08:03)
[2023-04-26] MEDS ORDERED: NEURONTIN300 MG PO (08:03)
[2023-04-26] MEDS ORDERED: Pentoxifylline400 MG PO (08:04)
[2023-04-26 08:47] LABS: BASOPHILS ABSOLUTE AUTO 0.06 K/mm3 (0.00-0.23); BASOPHILS PERCENT AUTO 1 % (0-2); EOSINOPHILS ABSOLUTE AUTO 0.12 K/mm3 (0.00-0.68); EOSINOPHILS PERCENT AUTO 2 % (0-6); Hematocrit 42.5 % (33.0-51.0); IMMATURE GRAN ABSOLUTE AUTO 0.01 K/mm3 (0.00-0.10); IMMATURE GRAN PERCENT AUTO 0 % (0-1); LYMPHOCYTES ABSOLUTE AUTO 1.28 K/mm3 (0.84-5.20); LYMPHOCYTES PERCENT AUTO 22 % (21-46); MONOCYTES ABSOLUTE AUTO 0.34 K/mm3 (0.16-1.47); MONOCYTES PERCENT AUTO 6 % (4-13); Mean Corpuscular HGB 30.4 pg (26.0-34.0); Mean Corpuscular HGB Conc 32.9 g/dL (31.5-36.5); Mean Corpuscular Volume 92 fL (80-100); Mean Platelet Volume 10.1 fL (9.1-12.4); NEUTROPHILS ABSOLUTE AUTO 3.97 K/mm3 (1.96-9.15); NEUTROPHILS PERCENT AUTO 69 % (41-73); Platelet Count 225 K/mm3 (150-400); RDW Coefficient Variation 12.6 % (11.7-14.2); RDW Standard Deviation 42.8 fL (35.1-46.3); White Blood Cell Count 5.78 K/mm3 (4.00-11.30)
[2023-04-26 09:04] LABS: Albumin, Blood 3.5 g/dL (3.4-5.0); Albumin/Globulin Ratio 0.9 (0.8-1.8); Bilirubin, Total 0.3 mg/dL (0.1-1.0); Bun/Creatinine Ratio 11.5 (12.0-20.0); Calcium, Blood 9.4 mg/dL (8.5-10.1); Creatinine, Blood 0.7 mg/dL (0.40-1.00); Total Protein, Blood 7.5 g/dL (6.4-8.2)
[2023-04-26 09:31] VITALS: BP 142/81
== END 2023-04-26 09:35 | disposition home or self-care (01) ==
LOC: ER 07:17
PROVIDERS: Physician Assistant
DX: K57.92 Diverticulitis of intestine, part unspecified, without perforation or abscess without bleeding (principal); I73.9 Peripheral vascular disease, unspecified; J45.909 Unspecified asthma, uncomplicated; Z91.040 Latex allergy status; Z79.899 Other long term (current) drug therapy; Z86.711 Personal history of pulmonary embolism; Z86.718 Personal history of other venous thrombosis and embolism
CPT/HCPCS: 80053; 83690; 85025; 96361; 96374; 96375; 99284-25; J1170; J2405; J7030

== ENCOUNTER 2024-05-30 07:03 | Emergency (ER) | payer OTHER ==
[~2024-05-30] VITALS: Ht 193 cm; Wt 116.1 kg
[~2024-05-30 07:03] MED LIST changes: +AMITRIPTYLINE H25 MG PO; +NEURONTIN300 MG PO
[2024-05-30] MEDS ORDERED: LAMOTRIGINE50 MG PO (08:21)
[2024-05-30] MEDS ORDERED: ESCI10 (08:21)
[2024-05-30] MEDS ORDERED: AMIT50 PO (08:21)
[2024-05-30] MEDS ORDERED: EPIPEN0.3 MG/0.3 IM (08:21)
[2024-05-30] MEDS ORDERED: Ketorolac Tromethamine 15mg Vial IV ONE (08:30)
[2024-05-30] MEDS ORDERED: Prochlorperazine Edisylate 10 mg Vial IV ONE (08:30)
[2024-05-30] MEDS ORDERED: DiphenhydrAMINE HCl 50 MG/ML 1ML Vial IV ONE (08:30)
[2024-05-30] MEDS ORDERED: NS 1,000 ML IV SCH (08:30)
[2024-05-30 08:32] LABS: BASOPHILS ABSOLUTE AUTO 0.04 K/mm3 (0.00-0.23); BASOPHILS PERCENT AUTO 1 % (0-2); EOSINOPHILS ABSOLUTE AUTO 0.11 K/mm3 (0.00-0.68); EOSINOPHILS PERCENT AUTO 2 % (0-6); Hematocrit 42.1 % (33.0-51.0); Hemoglobin 13.9 g/dL (11.5-16.0); IMMATURE GRAN ABSOLUTE AUTO 0.01 K/mm3 (0.00-0.10); IMMATURE GRAN PERCENT AUTO 0 % (0-1); LYMPHOCYTES ABSOLUTE AUTO 0.85 K/mm3 (0.84-5.20); LYMPHOCYTES PERCENT AUTO 12 % (21-46); MONOCYTES ABSOLUTE AUTO 0.32 K/mm3 (0.16-1.47); MONOCYTES PERCENT AUTO 5 % (4-13); Mean Corpuscular Volume 94 fL (80-100); Mean Platelet Volume 9.8 fL (9.1-12.4); NEUTROPHILS ABSOLUTE AUTO 5.53 K/mm3 (1.96-9.15); NEUTROPHILS PERCENT AUTO 81 % (41-73); Platelet Count 195 K/mm3 (150-400); RDW Coefficient Variation 13.2 % (11.7-14.2); RDW Standard Deviation 45.2 fL (35.1-46.3); Red Blood Cell Count 4.49 M/mm3 (3.80-5.20); White Blood Cell Count 6.86 K/mm3 (4.00-11.30)
[2024-05-30 08:52] LABS: Albumin, Blood 3.5 g/dL (3.4-5.0); Albumin/Globulin Ratio 0.9 (0.8-1.8); Bilirubin, Total 0.4 mg/dL (0.1-1.0); Bun/Creatinine Ratio 23.9 (12.0-20.0); Calcium, Blood 9.4 mg/dL (8.5-10.1); Creatinine, Blood 0.63 mg/dL (0.40-1.00); Globulin, Blood 4.1 g/dL (2.2-4.0); Potassium, Blood 3.8 mmol/L (3.5-5.5); Total Protein, Blood 7.6 g/dL (6.4-8.2)
[2024-05-30] MEDS ORDERED: ONDA4ODT MM (09:45)
[2024-05-30 09:53] VITALS: BP 149/89
== END 2024-05-30 09:59 | disposition home or self-care (01) ==
LOC: ER 07:03
PROVIDERS: Student in an Organized Health Care Education/Training Program
DX: G43.909 Migraine, unspecified, not intractable, without status migrainosus (principal); J45.909 Unspecified asthma, uncomplicated; Z79.899 Other long term (current) drug therapy; Z91.040 Latex allergy status; Z91.030 Bee allergy status
CPT/HCPCS: 80053; 82947; 85025; 93005; 93010; 96361; 96374; 96375; 99283-25; J0780; J1200; J1885; J7030

== ENCOUNTER → 2024-06-12 | Outpatient (CLI) | payer OTHER ==
[~2024-06-12] MED LIST changes: +AMIT50 PO; +EPIPEN0.3 MG/0.3 IM; +ESCI10; +LAMOTRIGINE50 MG PO
[2024-06-12 11:27] LABS: BASOPHILS ABSOLUTE AUTO 0.04 K/mm3 (0.00-0.23); BASOPHILS PERCENT AUTO 1 % (0-2); EOSINOPHILS PERCENT AUTO 2 % (0-6); Hematocrit 39.9 % (33.0-51.0); Hemoglobin 13.1 g/dL (11.5-16.0); IMMATURE GRAN ABSOLUTE AUTO 0.01 K/mm3 (0.00-0.10); IMMATURE GRAN PERCENT AUTO 0 % (0-1); LYMPHOCYTES ABSOLUTE AUTO 1.39 K/mm3 (0.84-5.20); LYMPHOCYTES PERCENT AUTO 28 % (21-46); MONOCYTES ABSOLUTE AUTO 0.36 K/mm3 (0.16-1.47); MONOCYTES PERCENT AUTO 7 % (4-13); Mean Corpuscular HGB 30.6 pg (26.0-34.0); Mean Corpuscular HGB Conc 32.8 g/dL (31.5-36.5); Mean Corpuscular Volume 93 fL (80-100); Mean Platelet Volume 10.1 fL (9.1-12.4); NEUTROPHILS ABSOLUTE AUTO 3.11 K/mm3 (1.96-9.15); NEUTROPHILS PERCENT AUTO 62 % (41-73); Platelet Count 232 K/mm3 (150-400); RDW Coefficient Variation 12.9 % (11.7-14.2); Red Blood Cell Count 4.28 M/mm3 (3.80-5.20); White Blood Cell Count 5.01 K/mm3 (4.00-11.30)
[2024-06-12 11:51] LABS: Alanine Aminotransfer (ALT/SGP 22 U/L (12-78); Albumin, Blood 3.4 g/dL (3.4-5.0); Albumin/Globulin Ratio 0.9 (0.8-1.8); Alk Phos 92 U/L (50-136); Anion Gap 9 mmol/L (3-11); Aspartate Aminotrans (AST/SGOT 14 U/L (12-37); Bilirubin, Total 0.7 mg/dL (0.1-1.0); Blood Urea Nitrogen 9 mg/dL (8-24); Bun/Creatinine Ratio 16.5 (12.0-20.0); CHOL/HDL RATIO 3.1; CO2, Blood 26 mmol/L (21-32); Calcium, Blood 8.5 mg/dL (8.5-10.1); Chloride, Blood 108 mmol/L (98-108); Cholesterol 182 mg/dL (50-200); Creatinine, Blood 0.55 mg/dL (0.40-1.00); Globulin, Blood 3.6 g/dL (2.2-4.0); Glomerular Filtration Rate 111 (60-); Glucose, Blood 92 mg/dL (70-99); HDL Cholesterol 58 mg/dL (>39); LDL/HDL RATIO 1.7; Low Density Lipoprotein Chol 97 mg/dL (0-110); Potassium, Blood 3.8 mmol/L (3.5-5.5); Sodium, Blood 139 mmol/L (136-145); Triglycerides 133 mg/dL (30-160); Very Low Density Lipoprot Chol 26 mg/dL (6-32)
== END ==
LOC: LAB 09:00 → LAB SHORT 09:00
PROVIDERS: Family Medicine
DX: Z51.81 Encounter for therapeutic drug level monitoring (principal); Z79.899 Other long term (current) drug therapy
CPT/HCPCS: 80053; 80061; 82306; 83036; 84443; 85025